=== PATIENT | male | born 1950 | race Caucasian/White ===

== ENCOUNTER 2016-12-02 15:10 | Inpatient (IN) | payer MEDICARE ==
[~2016-12-02 15:10] MED LIST: LISINOPRIL 2.5 MG TAB PO SCH; VALSARTAN 80 MG TAB PO SCH
[2016-12-02] MEDS ORDERED: SODIUM CHLORIDE 0.9% 10 ML FLUSH FLUSH PRN (15:18)
--- NOTE | 2016-12-02 15:18 | EDPRACDOC ---
- General Information Chief Complaint: Generalized Weakness Stated Complaint: CHEST PAIN Time Seen by Provider: 12/02/16 15:15 Allergies/Adverse Reactions: Allergies Allergy/AdvReac Type Severity Reaction Status Date / Time No Known Allergies Allergy Verified 12/02/16 15:23 - History of Present Illness Onset: 2 DAYS HPI: PT COMPLAINS OF 2 DAYS OF OWEN, WORSENING SOBR, SUBSTERNAL CHEST PRESSURE, NO FEVER OR CHILLS, NO N/V/D. Shortness of Breath: Severe Relevant History: Reports: Heart Failure (CHF) Cough: Reports: Non-productive Rhinorrhea: Denies: Clear, Bloody, Brown, Green, Purulent, None, O Ear Symptoms: Reports: None SOB Worsens with: Reports: Exertion SOB Improves with: Reports: Nothing Recently treated infections:: Denies: Otitis media, Pneumonia, URI Associated Signs and symptoms: Reports: Cough. Denies: Earache, Fever, Headache , Nasal Symptoms, Sore Throat, Nausea, Vomiting, Diarrhea, Myalgia, Rash, Pain with head movement, AMS ED Past Medical History - History Reviewed Yes Nurses notes reviewed and agree except as marked - Patient Medical History Cardiac History: Reports: Coronary Artery Disease, Congestive Heart Failure, CABG Systemic History: Reports: Diabetes - Social Medical History Smoking Status: Never smoker ETOH: None Substance Abuse: None EDM Review of Systems - Review of Systems Constitutional: negative: Chills, Fever Eyes: negative: Blurred Vision, Double Vision Ears: negative: Drainage Throat: negative: Pain Nose: negative: Congestion, Discharge Respiratory: Shortness of Breath, Wheezing. negative: Cough Cardiovascular: Chest Pain, Palpitations Gastrointestinal: negative: Diarrhea, Nausea, Pain, Vomiting Genitourinary: negative: Dysuria, Frequency Neurological: negative: Dizziness, Headache, Numbness, Weakness Musculoskeletal: No Symptoms Reported Integumentary: No Symptoms Reported - Physical Exam Constitutional: No apparent distress, Alert (Awake), Other (PALE) Oriented to: Time, Person, Place Last recorded Vital Signs: Oxygen Pulse Oxygen Saturation O2 Device Oxygen Flow Rate Fraction of Inspired Oxygen ( FIO2) - HEENT Head: Normal ( normocephalic) Eye Exam: Normal (PERRL, EOMI, Sclera white) Oropharynx: Normal (Pharynx:Moist without exudate,Gums-no swelling) Tympanic Membrane: Normal ENT EAC: Normal TMJ: Normal Nose: No Symptoms Reported (septum midline) Neck: Normal (FROM, trachea at midline) - Respiratory/Cardiovascular Respiratory: Accessory Muscle Use, Rales, Rhonchi Cardiovascular: Tachycardia. negative: Irregular, Diastolic murmur, Systolic murmur - GI Auscultation: Normal (NABS) Palpation: Normal (Soft,No rebound or guarding, non distended) Tenderness: Non tender Riddle's Sign: Negative - Musculoskeletal Back: Normal (Non-Tender) Extremities: Normal (Normal tone, Pulses 2+ No cyanosis or edema, FROM) - Integumentary Skin: Normal, Warm, Dry Lymphatics: Normal (no adenopathy) - Neurologic Memory Impaired: Normal Motor Function: Normal (Normal tone, Pulses 2+ No cyanosis or edema, FROM) Cranial Nerve: Normal (CN II-X11 intact sensation, strength 5/5) Cerebellar: Normal Mood Description: Normal Perception: Normal ED SOB MDM - Differential Diagnosis Differential Diagnosis: Heart Failure, Pnuemonia, Pneumothorax, Respiratory Failure - Re-evaluation Re-evaluation 1 Re-evaluation Time: 15:35 (NO CHANGE) Re-evaluation 2 Re-evaluation Time: 16:00 (IMPROVED ON BIPAP) Re-evaluation 3 Re-evaluation Time: 16:14 (IMPROVED ON BIPAP, DISCUSSED WITH DR STUBBS, HE WILL DISCUSS WITH HOSPTIALIST) - Results Result Diagrams: 12/02/16 15:21 12/02/16 15:21 - EKG EKG #1 EKG Time: 15:12 -: Yes EKG interpreted by me Rate: bpm: 127 [place]: LAD Rhythm: Aflutter Block: None Hypertrophy: None ST: Nonsp Comments: NO OLD EKG FOR COMPARISON Comparison: 06/20/11 (RATE INCREASED TODAY) - Diagnostic Imaging CXR Image interpreted by: Radiologist Diagnostic Imaging Comments: PORTABLE CHEST 1 VIEW COMPARISON: 06/20/2011 FINDINGS: Status post median sternotomy and CABG. Heart margins are obscured by significant parenchymal opacities in the lungs bilaterally, associated with air bronchograms. There is somewhat nodular appearance of these opacities.There is partial obscuration of the left hemidiaphragm. Possible left pleural effusion. IMPRESSION: 1. Significant diffuse and dense alveolar filling bilaterally. 2. Considerations include infection, pulmonary edema, pulmonary hemorrhage or significant metastatic disease. ED Critical Care Note - Critical Care Note Total Time (mins): 45 Comments: Due to the presence of and / or the risk of deterioration, my attendance to this patient required critical care time, including assessment/reassessment, documentation, ordering and interpreting ancillary studies, discussion with ED staff and consultants,patient and family, and excludes time spent on separately billable procedures. - Departure Condition: Serious Final Diagnosis: Acute respiratory failure with hypoxia, Lactic acidosis, NSTEMI (non-ST elevated myocardial infarction) Congestive heart failure Qualifiers: Congestive heart failure type: unspecified congestive heart failure type Congestive heart failure chronicity: acute Qualified Code(s): I50.9 - Heart failure, unspecified Instructions: Weakness (General) Education/Counseling Given To: Patient Education/Counseling Given Regarding: Diagnosis, Treatment, Prognosis, Follow Up
[2016-12-02 15:23] LABS: ABG Draw Site Left Radial; ABG Draw Tech SI; ALLEN'S TEST PASS; BEb -4.7 (+/- 2); TCO2 21.5 MMOL/L (23-27)
[2016-12-02] MEDS ORDERED: NITROGLYCERINE 2 % OINTMENT PACK TOP ONE (15:29)
[2016-12-02] MEDS ORDERED: FUROSEMIDE 40 MG/4 ML VIAL IV ONE (15:29)
[2016-12-02 15:39] LABS: MPV 8.8 fL (7.4-10.4)
[2016-12-02 15:51] LABS: PARTIAL THROMB. TIME 28.7 SEC (22-35); PT-INR 1.3
--- NOTE | 2016-12-02 15:51 | DIRPT ---
CLINICAL DATA: Shortness of breath. Difficulty breathing. Rapid shallow breathing and unable to take a deep breath. Cough. Oxygen in ED. Symptoms for 3 days. Worse today. EXAM: PORTABLE CHEST 1 VIEW COMPARISON: 06/20/2011 FINDINGS: Status post median sternotomy and CABG. Heart margins are obscured by significant parenchymal opacities in the lungs bilaterally, associated with air bronchograms. There is somewhat nodular appearance of these opacities.There is partial obscuration of the left hemidiaphragm. Possible left pleural effusion. IMPRESSION: 1. Significant diffuse and dense alveolar filling bilaterally. 2. Considerations include infection, pulmonary edema, pulmonary hemorrhage or significant metastatic disease. Electronically Signed By: Sheyla Vences M.D. On: 12/02/2016 15:49
[2016-12-02 15:57] LABS: BLOOD UREA NITROGEN 25 MG/DL (9-20); CALC CORRECTED 9.2 MG/DL (8.4-10.2); CALCIUM 8.7 MG/DL (8.4-10.2); CALCULATED OSMOLALITY 290 MOs/Kg (270-290); CHLORIDE 102 mEq/L (98-107); GLUCOSE 259 MG/DL (70-99); SODIUM LEVEL 144 mEq/L (137-146); TOTAL PROTEIN 7.2 G/DL (6.3-8.2)
[2016-12-02] MEDS ORDERED: CEFTRIAXONE 1 GM in D5W 100 ML IV ONE (16:07)
[2016-12-02] MEDS ORDERED: AZITHROMYCIN 500 MG in D5W 250 ML IV ONE (16:07)
[2016-12-02 16:09] LABS: SEG NEUTROPHIL 91 % (45-76); TOTAL CELL COUNT 100
[2016-12-02 16:56] LABS: LEUKOCYTES/URINE NEG (NEGATIVE); NITRITE/URINE NEG (NEGATIVE); URINE OCCULT BLOOD 1+ (NEG/TRACE)
[2016-12-02] MEDS ORDERED: ALBUTEROL 0.083% 3 ML NEB NEB PRN (17:09)
[2016-12-02] MEDS ORDERED: NITROGLYCERINE 0.4 MG TAB SL PRN (17:09)
[2016-12-02] MEDS ORDERED: IBUPROFEN 400 MG TAB PO PRN (17:09)
[2016-12-02] MEDS ORDERED: ACETAMINOPHEN 325 MG/TAB TABLET PO PRN (17:09)
[2016-12-02] MEDS ORDERED: ONDANSETRON HCL 4 MG/2 ML VIAL IV PRN (17:09)
[2016-12-02] MEDS ORDERED: PROMETHAZINE 25 MG/ML VIAL IV PRN (17:09)
[2016-12-02] MEDS ORDERED: GLUCAGON 1 MG VIAL SQ PRN (17:09)
[2016-12-02] MEDS ORDERED: DEXTROSE 25 GM/50 ML PFS IV PRN (17:09)
[2016-12-02] MEDS ORDERED: GLUCOSE (ORAL GEL) 15 GM TUBE PO PRN (17:09)
[2016-12-02] MEDS ORDERED: SODIUM CHLORIDE 0.9% 3 ML FLUSH FLUSH PRN (17:09)
[2016-12-02] MEDS ORDERED: MAGNESIUM HYDROXIDE 30 ML BOTTLE PO PRN (17:09)
[2016-12-02] MEDS ORDERED: Aluminum;Magnesium;Simethicone 30 ML UDC PO PRN (17:09)
[2016-12-02 17:24] LABS: ALLEN'S TEST PASS; BEb -1.1 (+/- 2); TCO2 25.6 MMOL/L (23-27)
[2016-12-02 17:25] LABS: ABG Draw Site LT BR; ABG Draw Tech RD
--- NOTE | 2016-12-02 17:28 | HISTPHYS ---
- Chief Complaint Patient presents at the behest of his family due to 2 days of worsening shortness of breath - History of Present Illness Will be 66-year-old gentleman last admission to our facility in 2010 no admissions since then to any other hospitals. Patient presents complaining of worsening shortness of breath and weakness he has had some lower extremity edema but is sister reports that is been much worse in the past. On rapid evaluation he is found to have a PO2 of 37 and started on BiPAP treatment immediately. Chest x-ray reveals diffuse dense alveolar filling bilaterally concerning for infection, pulmonary edema, pulmonary hemorrhage or significant metastatic disease. His O2 his very low and requiring significant support from the BiPAP. He appears to be in congestive heart failure with lower extremity edema and rales and rhonchi on examination his lactic acid is almost 6. [place] [id number]. His respiratory rate is in the high 20s to 30s. Given the above signs symptoms and findings patient will be admitted into the ICU for treatment of severe sepsis, probable pneumonia, and severe exacerbation of acute congestive heart failure. - Medical History Cardiac History: Reports: Coronary Artery Disease, Congestive Heart Failure, CABG Systemic History: Reports: Diabetes - Surgical History Reports: CABG - Medictions/Allergies Allergies No Known Allergies Allergy (Verified 12/02/16 15:23) Current Medication List: Reviewed Home Medications Amlodipine Besylate 10 mg PO DAILY 12/02/16 Clopidogrel Bisulfate [Plavix] 75 mg PO DAILY 12/02/16 Furosemide [Lasix] 40 mg PO BID 12/02/16 Insulin Detemir [Levemir] 10 units SQ DAILY 12/02/16 Lisinopril [Zestril] 40 mg PO DAILY 12/02/16 Metformin HCl 1,000 mg PO BID 12/02/16 Potassium Chloride [Klor-Con M20] 20 meq PO DAILY 12/02/16 Risperidone [Risperdal] 2 mg PO QHS 12/02/16 Rosuvastatin Calcium [Crestor] 20 mg PO DAILY 12/02/16 Sertraline HCl [Zoloft] 100 mg PO QHS 12/02/16 Sitagliptin Phosphate [Januvia] 50 mg PO DAILY 12/02/16 - Family History Reports: Hypertension, Diabetes - Social History Travel Outside of [place] in the Last 3 Months?: No Lives: Alone (?) Smoking Status: Never smoker Social History: Denies: Alcohol Use, Substance Use Disorder - Review of Systems Yes Review of systems cannot be obtained due to the patient's medical condition - Physical Exam Vital Signs: Initial Vitals Respiratory Rate 26 H 12/02/16 15:29 Pulse Oxygen Saturation 99 12/02/16 15:29 Constitutional: Distress (severe). negative: Well nourished, Well appearing Oriented to: Time, Person, Place - HEENT Head: Normal (normocephalic, atraumatic.), Other (No cervical lymphadenopathy. No supraclavicular lymphadenopathy. Neck: No palpable mass, supple , trachea midline.) Eye: Normal (pupils equal, reactive to light, and round; EOMI, Sclera white) Oropharynx: Normal (Pharynx: Moist without exudate,Gums-no swelling, No oropharyngeal lesions or erythema, Mucous membranes are dry.) Nose: No Symptoms Reported (septum midline, Nares patent, without discharge or bleeding.) Respiratory: Accessory Muscle Use, Diminished, Rales, Rhonchi, Tachypnea, Wheezes Cardiovascular: Tachycardia - GI Auscultation: Normal (normal active sounds) Palpation: Normal (Soft,non distended,nontender. No hepatosplenomegaly.) Tenderness: Non tender (No rebound or guarding) Riddle's Sign: Negative - Musculoskeletal Back: Normal (Non-Tender) Extremities: Edema (2+) - Integumentary Skin: Rash (venous stasis on RLE) Lymphatics: Normal (No cervical lymphadenopathy. No supraclavicular lymphadenopathy.) - Neurologic Memory Impaired: Unable to Test Motor Function: Unable to Test Cranial Nerve: Unable to Test Cerebellar: Unable to Test Mood Description: Anxious - Focused CV Perfusion Exam Date exam occurred: 12/02/16 Time of Exam: 17:33 Vital Signs: Last Vital Signs Temp 99.9 F 12/02/16 16:50 Pulse 116 12/02/16 16:50 Resp 26 H 12/02/16 16:50 BP 137/75 12/02/16 16:50 Pulse Ox 98 12/02/16 16:50 Respiratory: Chest non-tender, Accessory muscle use, Rales, Rhonchi, Wheezing Cardiovascular/Chest: Tachycardia Capillary Refill: Immediate Peripheral pulses: Full: Radial (R), Radial (L), Dorsalis pedis (R), Dorsalis pedis (L) Skin Color: Pale Skin Turgor: <3 Seconds - Lab Results Laboratory Results - last 24 hr 12/02/16 12/02/16 12/02/16 15:18 15:21 15:21 WBC 23.3 H RBC 4.78 Hgb 12.6 L Hct 38.9 L MCV 81 MCH 26.4 L MCHC 32.5 L RDW 15.2 H Plt Count 234 MPV 8.8 Seg Neuts % (Manual) 91 H Band Neutrophils % 2 Lymphocytes % (Manual) 2 L Monocytes % (Manual) 5 Absolute Neutrophils 21.67 H Absolute Lymphocytes 0.47 L Vacuolated Neuts 1+ Dohle Bodies Occ Platelet Estimate Occ giant platelet RBC Morphology 1+ ellipto PT INR APTT Puncture Site Left radial pH 7.350 pCO2 37.0 pO2 39.0 L* HCO3 20.4 L Total CO2 21.5 L Base Excess -4.7 L Vent Mode FiO2 % 21% Specimen Drawn By Si Sodium 144 Potassium 3.6 Chloride 102 Carbon Dioxide 20 L Anion Gap 26 H BUN 25 H Creatinine 1.30 H Estimated GFR (MDRD) 55 L Glucose 259 H POC Capillary Glucose Calculated Osmolality 290 Lactic Acid Calcium 8.7 Corrected Calcium 9.2 Total Bilirubin 1.0 AST 54 ALT 47 Alkaline Phosphatase 146 Troponin I 0.33 [id number] Pept 49116 H Total Protein 7.2 Albumin 3.5 Lipase 76 Urine Color Urine Clarity Urine pH Ur Specific [place] Urine Protein Urine Glucose (UA) Urine Ketones Urine Occult Blood Urine Nitrite Urine Bilirubin Urine Urobilinogen Ur Leukocyte Esterase Urine RBC Urine WBC Urine WBC Clumps Ur Epithelial Cells Urine Bacteria Hyaline Casts Urine Mucus 12/02/16 12/02/16 12/02/16 15:21 15:21 15:22 WBC RBC Hgb Hct MCV MCH MCHC RDW Plt Count MPV Seg Neuts % (Manual) Band Neutrophils % Lymphocytes % (Manual) Monocytes % (Manual) Absolute Neutrophils Absolute Lymphocytes Vacuolated Neuts Dohle Bodies Platelet Estimate RBC Morphology PT 13.0 H INR 1.3 APTT 28.7 Puncture Site pH pCO2 pO2 HCO3 Total CO2 Base Excess Vent Mode FiO2 % Specimen Drawn By Sodium Potassium Chloride Carbon Dioxide Anion Gap BUN Creatinine Estimated GFR (MDRD) Glucose POC Capillary Glucose 259 H Calculated Osmolality Lactic Acid 5.5 H* Calcium Corrected Calcium Total Bilirubin AST ALT Alkaline Phosphatase Troponin I [id number] Pept Total Protein Albumin Lipase Urine Color Urine Clarity Urine pH Ur Specific [place] Urine Protein Urine Glucose (UA) Urine Ketones Urine Occult Blood Urine Nitrite Urine Bilirubin Urine Urobilinogen Ur Leukocyte Esterase Urine RBC Urine WBC Urine WBC Clumps Ur Epithelial Cells Urine Bacteria Hyaline Casts Urine Mucus 12/02/16 12/02/16 16:39 17:20 WBC RBC Hgb Hct MCV MCH MCHC RDW Plt Count MPV Seg Neuts % (Manual) Band Neutrophils % Lymphocytes % (Manual) Monocytes % (Manual) Absolute Neutrophils Absolute Lymphocytes Vacuolated Neuts Dohle Bodies Platelet Estimate RBC Morphology PT INR APTT Puncture Site Lt br pH 7.370 pCO2 42.0 pO2 106.0 H HCO3 24.3 Total CO2 25.6 Base Excess -1.1 Vent Mode Bipap 12/6 FiO2 % 50% Specimen Drawn By Rd Sodium Potassium Chloride Carbon Dioxide Anion Gap BUN Creatinine Estimated GFR (MDRD) Glucose POC Capillary Glucose Calculated Osmolality Lactic Acid Calcium Corrected Calcium Total Bilirubin AST ALT Alkaline Phosphatase Troponin I Wzi-V-Vklkgllsvja Pept Total Protein Albumin Lipase Urine Color Yellow Urine Clarity Cldy Urine pH 5.0 Ur Specific [place] 1.015 Urine Protein 3+ H Urine Glucose (UA) Trace Urine Ketones Neg Urine Occult Blood 1+ H Urine Nitrite Neg Urine Bilirubin Neg Urine Urobilinogen <2.0 Ur Leukocyte Esterase Neg Urine RBC 5-10 H Urine WBC 2-5 H Urine WBC Clumps None Ur Epithelial Cells 1+ Urine Bacteria Few Hyaline Casts 10-20 H Urine Mucus Sm amt - Diagnostic Findings PORTABLE CHEST 1 VIEW COMPARISON: 06/20/2011 FINDINGS: Status post median sternotomy and CABG. Heart margins are obscured by significant parenchymal opacities in the lungs bilaterally, associated with air bronchograms. There is somewhat nodular appearance of these opacities.There is partial obscuration of the left hemidiaphragm. Possible left pleural effusion. IMPRESSION: 1. Significant diffuse and dense alveolar filling bilaterally. 2. Considerations include infection, pulmonary edema, pulmonary hemorrhage or significant metastatic disease. Electronically Signed By: Sheyla Vences M.D. On: 12/02/2016 15:49 - Assessment (1) Severe sepsis A41.9 - SEPSIS, UNSPECIFIED ORGANISM; R65.20 - SEVERE SEPSIS WITHOUT SEPTIC SHOCK Acute Present on Admission: Yes (2) Acute respiratory failure with hypoxia J96.01 - ACUTE RESPIRATORY FAILURE WITH HYPOXIA Acute Present on Admission: Yes (3) Congestive heart failure I50.9 - HEART FAILURE, UNSPECIFIED Acute Present on Admission: Yes Qualifiers: Congestive heart failure type: systolic Congestive heart failure chronicity : acute Qualified Code(s): I50.21 - Acute systolic (congestive) heart failure (4) Bacterial pneumonia J15.9 - UNSPECIFIED BACTERIAL PNEUMONIA Suspected Present on Admission: Yes (5) Lactic acidosis E87.2 - ACIDOSIS Acute Present on Admission: Yes (6) Acute kidney injury N17.9 - ACUTE KIDNEY FAILURE, UNSPECIFIED Acute Present on Admission: Yes (7) DM type 2, uncontrolled, with renal complications E11.29 - TYPE 2 DIABETES MELLITUS W OTH DIABETIC KIDNEY COMPLICATION; E11.65 - TYPE 2 DIABETES MELLITUS WITH HYPERGLYCEMIA Chronic Present on Admission: Yes Qualifiers: Diabetes mellitus complication detail: with chronic kidney disease Diabetes mellitus penitentiary insulin use: with penitentiary use Chronic kidney disease stage: stage 3 (moderate) Qualified Code(s): E11.22 - Type 2 diabetes mellitus with diabetic chronic kidney disease; E11.65 - Type 2 diabetes mellitus with hyperglycemia; N18.3 - Chronic kidney disease, stage 3 (moderate) ; Z79.4 - nursing home (current) use of insulin (8) CAD (coronary artery disease) I25.10 - ATHSCL HEART DISEASE OF [place] CORONARY ARTERY W/O ANG PCTRS Chronic Present on Admission: Yes Qualifiers: Coronary Disease-Associated Artery/Lesion type: [place] artery [place] vs. transplanted heart: [place] heart Associated angina: without angina Qualified Code(s): I25.10 - Atherosclerotic heart disease of [place] coronary artery without angina pectoris (9) S/P coronary artery bypass graft x 2 Chronic Present on Admission: Yes - Plan Patient is acutely and critically ill and being admitted to rule out pneumonia as well as to determine the type of congestive heart failure he has. He is requiring BiPAP therapy and may very well worsen if he worsens he will likely require intubation. He will be started on aggressive pulmonary treatments along with IV antibiotics and diuresis for probable congestive heart failure. I have started him on aspirin, Servando, Arb, beta-cesar and nitrates. Cultures are being obtained. At this point patient's blood pressure is fairly [place] in does not appear to require any pressors. Will continue treatment for sepsis with sepsis protocol. Evidence based care for congestive heart failure, and evidence based care for pneumonia. Due to the presence of and/or the risk of deterioration, my attendance to this patient required critical care time, including assessment/reassessment, documentation, ordering and interpreting ancillary studies, discussion with staff and consultants,patient and family, and excludes time spent on separately billable procedures. In summary, this patient is acutely and critically ill. The patient requires treatment of vital organ failure and measures to prevent further life-threatening deterioration of condition. Case Care Discussed with: Patient, Family, Nursing Staff Total Time: 85 min Critical Care: Yes Couseling Time (>50% in counseling/coordination): No
[2016-12-02] MEDS ORDERED: Pharmacy Order Set Alert SCH ×2 (18:00)
[2016-12-02] MEDS ORDERED: NS/KCl 20 mEq 1,000 ML IV SCH (18:00)
[2016-12-02] MEDS ORDERED: ENOXAPARIN 60 MG/0.6 ML PFS SQ SCH (18:00)
[2016-12-02] MEDS ORDERED: INSULIN DETEMIR 100 UNITS/ML PEN SQ SCH (18:00)
[2016-12-02] MEDS ORDERED: LR 1,000 ML IV SCH (18:00)
[2016-12-02] MEDS: ATORVASTATIN 10 MG TAB PO SCH (18:26)
[2016-12-02] MEDS: METOPROLOL TARTRATE 25 MG TAB PO SCH ×2 (18:26→21:20)
[2016-12-02] MEDS: POTASSIUM CHLORIDE 20 MEQ TAB PO SCH (18:26)
[2016-12-02] MEDS: FUROSEMIDE 40 MG/4 ML VIAL IV SCH (18:48)
[2016-12-02] MEDS: SODIUM CHLORIDE 0.9% 3 ML FLUSH FLUSH SCH (18:50)
--- NOTE | 2016-12-02 19:47 | HIMCONS ---
DATE OF CONSULT: REQUESTING PHYSICIAN: Dr. Robledo. REASON FOR CONSULTATION: Respiratory failure. HISTORY OF PRESENT ILLNESS: This patient is a 66-year-old male, who was doing fairly well until yesterday when he was found to be having mild dyspnea and some coughing, but today the patient was found to be extremely dyspneic, weak, short of breath, coughing which was mostly dry, and has been much worse than what he has been in the past. The patient has had past medical history significant for coronary artery bypass graft surgery and his PaO2 was 37 and he was placed on BiPAP at that time. Chest x-ray showed diffuse pulmonary edema/infiltrates with question of pulmonary hemorrhage. The patient was placed on BiPAP. He has been feeling somewhat better today according to the sisters. He is able to talk and communicate and is not in acute distress at this time. However, the patient's lactic acid level was 6, white count was 23,000. The patient was therefore being admitted for severe sepsis, pneumonia, congestive heart failure versus ARDS. PAST MEDICAL HISTORY: Significant for coronary artery disease status post CABG and congestive heart failure, diabetes. SURGICAL HISTORY: Significant for CABG. ALLERGIES: THE PATIENT HAS NO KNOWN DRUG ALLERGIES. MEDICATIONS: In the chart were noted. FAMILY HISTORY: Significant for diabetes and hypertension in near family members. SOCIAL HISTORY: The patient has never been a smoker. No history of alcohol or drug abuse. Lives by himself. REVIEW OF SYSTEMS: Entire review of systems is negative except for those mentioned in the history of present illness. PHYSICAL EXAMINATION: VITAL SIGNS: Temperature is 99.7 degrees Fahrenheit, pulse is 130, respiratory rate is 22, blood pressure 135/93, pulse ox 95% on BiPAP. CHEST: Bilateral rales and diffuse wheezing. HEART: S1, S2. Regular. The patient has systolic murmur. EXTREMITIES: No clubbing or cyanosis. The patient has 1+ bilateral ankle edema. ABDOMEN: Soft and nontender. Bowel sounds present. Hepatosplenomegaly is absent. NEURO: Grossly nonfocal. The patient is moving all extremities. LABORATORY DATA: White count is 23.3, hemoglobin is 12.6, hematocrit 38.9, platelets are 234, PT and INR within normal limits. Blood gas showed a pH of 7.37, pCO2 of 42, PO2 of 106 on BiPAP 12/6 with 50% oxygen. Sodium 144, potassium 3.6, chloride 102, CO2 of 20, BUN is 25, creatinine is 1.3, glucose is 259, lactic acid 5.5. LFTs otherwise are within normal limits. ProBNP level was 29,700. IMAGING REPORTS: Chest x-ray was seen personally. The patient seems to have diffuse bilateral pulmonary edema versus ARDS. IMPRESSION: 1. [id number] respiratory failure with most likely congestive heart failure. Cannot rule out acute respiratory distress syndrome. 2. Multiple other medical issues including diabetes. PLAN: I think, the patient is doing fairly well on BiPAP and I would continue the BiPAP / with oxygen keep the patient in ICU. The patient is critically ill and he is in danger of getting intubated and getting worse. I would agree with continuing the patient on Rocephin and Zithromax and continue DVT and GI prophylaxis on this patient. Given the amount of wheezing that the patient is having, I would start the patient on Solu-Medrol at 60 mg IV q.6 hours and also start diuresis on this patient and the patient is on 40 milligrams of Lasix q.8 hours. I would continue that and make sure the patient stays in negative balance. I would discontinue Ringer's lactate. At this time, continue supportive care. Thank you much for the consultation and I will follow the patient with you. The time spent critical care, 90 minutes. [id number]
[2016-12-02] MEDS ORDERED: Vaccine Screening Complete SCH (21:00)
[2016-12-02] MEDS: Famotidine 20 mg/50 ml RTU 20 MG/50 ML IVB IV SCH (21:15)
[2016-12-02] MEDS: RISPERIDONE 1 MG TAB PO SCH (21:20)
[2016-12-02] MEDS: SERTRALINE HCL 100 MG TAB PO SCH (21:22)
[2016-12-02] MEDS: ALBUTEROL 0.083% 3 ML NEB NEB SCH (21:38)
[2016-12-02] MEDS: MORPHINE 2 MG/ML INJECTION IV PRN (22:01)
[2016-12-02] MEDS: CHLORHEXIDINE (HIBICLENS) 4 OZ BOTTLE TOP SCH (22:04)
[2016-12-02] MEDS: REGULAR INSULIN 100 UNITS/ML - 3 ML VIAL SQ SCH (23:12)
[2016-12-02] MEDS: NITROGLYCERINE 2 % OINTMENT PACK TOP SCH (23:16)
[2016-12-03] MEDS: ENOXAPARIN 100 MG PFS SQ SCH ×2 (00:12→11:55)
[2016-12-03] MEDS ORDERED: Enoxaparin Treatment Dose per Pharmacy SQ SCH (01:00)
[2016-12-03] MEDS: FUROSEMIDE 40 MG/4 ML VIAL IV SCH ×5 (01:17→23:32)
[2016-12-03] MEDS: ACETAMINOPHEN 650 MG SUPP PR PRN ×3 (02:32→22:30)
[2016-12-03] MEDS: ALBUTEROL 0.083% 3 ML NEB NEB SCH ×4 (02:55→20:35)
[2016-12-03] MEDS: SODIUM CHLORIDE 0.9% 3 ML FLUSH FLUSH SCH ×2 (05:16→17:54)
[2016-12-03] MEDS: NITROGLYCERINE 2 % OINTMENT PACK TOP SCH ×3 (05:19→17:53)
[2016-12-03 05:24] LABS: ALLEN'S TEST PASS; BEb 2.9 (+/- 2); TCO2 29.2 MMOL/L (23-27)
[2016-12-03] MEDS: REGULAR INSULIN 100 UNITS/ML - 3 ML VIAL SQ SCH ×4 (05:26→20:52)
[2016-12-03 05:27] LABS: ABG Draw Site Left Radial; BI-PAP 19/8 cm H2O
[2016-12-03 06:16] LABS: AUTOMATED BASOPHIL 0.2 % (0-2); AUTOMATED LYMPH 5.5 % (17-44); AUTOMATED MONOCYTE 6.6 % (3-10); AUTOMATED NEUTROPHIL 87.7 % (45-76); MPV 9.2 fL (7.4-10.4)
[2016-12-03 06:43] LABS: BLOOD UREA NITROGEN 34 MG/DL (9-20); CALC CORRECTED 9.6 MG/DL (8.4-10.2); CALCIUM 8.3 MG/DL (8.4-10.2); CALCULATED OSMOLALITY 294 MOs/Kg (270-290); CHLORIDE 105 mEq/L (98-107); GLUCOSE 182 MG/DL (70-99); SODIUM LEVEL 146 mEq/L (137-146); TOTAL PROTEIN 5.9 G/DL (6.3-8.2)
[2016-12-03 06:48] LABS: PT-INR 1.3
[2016-12-03] MEDS: INSULIN DETEMIR 100 UNITS/ML PEN SQ SCH (07:27)
[2016-12-03 07:35] LABS: LDL (calc.) 52.4 MG/DL (<100); VLDL (calc.) 28.6 MG/DL (5-40)
--- NOTE | 2016-12-03 07:50 | DIRPT ---
CLINICAL DATA: Pneumonia/CHF EXAM: PORTABLE CHEST 1 VIEW COMPARISON: Yesterday FINDINGS: Unchanged diffuse dense airspace disease with a somewhat patchy pattern. Air bronchograms are diffusely seen. No definitive signs of pleural effusion. No pneumothorax. Chronic cardiomegaly. The patient is status post CABG. IMPRESSION: History of pneumonia with unchanged graham lobar involvement. Electronically Signed By: Joao Luna M.D. On: 12/03/2016 07:47
[2016-12-03] MEDS ORDERED: METOPROLOL TARTRATE 25 MG TAB PO SCH (08:49)
[2016-12-03] MEDS: ROSUVASTATIN 10 MG TAB PO SCH (08:53)
[2016-12-03] MEDS: ATORVASTATIN 10 MG TAB PO SCH (08:53)
[2016-12-03] MEDS: SITAGLIPTIN 50 MG TAB PO SCH (08:53)
[2016-12-03] MEDS: POTASSIUM CHLORIDE 20 MEQ TAB PO SCH ×2 (08:53→17:44)
--- NOTE | 2016-12-03 08:53 | GENMEDPROG ---
Notes Reviewed: Yes Events from last night noted and discussed with Clinical Staff Current Medication List: Reviewed Currently: Reports: Cough, Wheezing, OWEN, SOB DVT Prophylaxis: Yes - Physical Examination Vital Signs and I&O: Last Vital Signs Temp 99.3 F 12/03/16 07:00 Pulse 132 H 12/03/16 08:00 Resp 30 H 12/03/16 08:00 BP 129/81 12/03/16 08:00 Pulse Ox 94 12/03/16 08:00 Oxygen Pulse Oxygen Saturation 94 O2 Device BiPAP Oxygen Flow Rate Fraction of Inspired Oxygen ( 50 FIO2) Intake & Output 11/30/16 12/01/16 12/02/16 12/03/16 23:59 23:59 23:59 23:59 Intake Total 798 124 Output Total 320 375 Balance 478 -251 Patient's weight 99 kg General: Alert, Oriented x3, Moderate distress, Obese HEENT: Normal (Normocephalic, atraumatic;EOMI.Sclera white, Nares patent, without discharge or bleeding. No oropharyngeal lesions or erythema. Mucous membranes are dry.) Neck: Non-tender, Full range of motion, Normal Trachea alignment, Normal inspection (No cervical lymphadenopathy. No supraclavicular lymphadenopathy.), No Masses palpable, Supple Lymphatics: Normal (No cervical lymphadenopathy. No supraclavicular lymphadenopathy.) Respiratory: Accessory Muscle Use, Diminished, Rales, Rhonchi, Stridor, Tachypnea (Wearing BiPAP). negative: Wheezes Cardiovascular: Regular rate and rhythm (Tachycardic with heart rate of 125), Normal S1, No Gallops,Rubs/Murmurs GI: Normal bowel sounds (normal active sounds), Soft (non-distended), Non tender , No hepatospenomegaly, No masses Extremities/Musculoskeletal: Swelling, Edema. negative: Clubbing, Cyanosis Skin: Warm,Dry and Intact, No rashes, No significant lesion Neurological: Strength at 5/5 X4 ext (Motor 5/5 throughout.), Normal tone, Cranial nerves 3-12 NL ( 2-12 grossly intact.) Psych/Mental Status: Anxious Lab/DI/Studies Reviewed: 12/03/16 05:45 12/03/16 05:45 Laboratory Results - last 24 hr 12/02/16 12/02/16 12/02/16 15:18 15:21 15:21 WBC 23.3 H RBC 4.78 Hgb 12.6 L Hct 38.9 L MCV 81 MCH 26.4 L MCHC 32.5 L RDW 15.2 H Plt Count 234 MPV 8.8 Neut % (Auto) Lymph % (Auto) [place] % (Auto) Eos % (Auto) Baso % (Auto) Absolute Neuts (auto) Absolute Lymphs (auto) Seg Neuts % (Manual) 91 H Band Neutrophils % 2 Lymphocytes % (Manual) 2 L Monocytes % (Manual) 5 Absolute Neutrophils 21.67 H Absolute Lymphocytes 0.47 L Vacuolated Neuts 1+ Dohle Bodies Occ Platelet Estimate Occ giant platelet RBC Morphology 1+ ellipto PT INR APTT Puncture Site Left radial pH 7.350 pCO2 37.0 pO2 39.0 L* HCO3 20.4 L Total CO2 21.5 L Base Excess -4.7 L Vent Mode FiO2 % 21% Mode BiPAP Specimen Drawn By Si Sodium 144 Potassium 3.6 Chloride 102 Carbon Dioxide 20 L Anion Gap 26 H BUN 25 H Creatinine 1.30 H Estimated GFR (MDRD) 55 L Glucose 259 H POC Capillary Glucose Hemoglobin A1c Calculated Osmolality 290 Lactic Acid Calcium 8.7 Corrected Calcium 9.2 Magnesium Total Bilirubin 1.0 AST 54 ALT 47 Alkaline Phosphatase 146 Troponin I 0.33 [id number]-Cahegzhnsot Pept 46228 H Total Protein 7.2 Albumin 3.5 Triglycerides Cholesterol LDL Cholesterol, Calc VLDL Cholesterol, Calc HDL Cholesterol Cholesterol/HDL Ratio Lipase 76 TSH Urine Color Urine Clarity Urine pH Ur Specific [place] Urine Protein Urine Glucose (UA) Urine Ketones Urine Occult Blood Urine Nitrite Urine Bilirubin Urine Urobilinogen Ur Leukocyte Esterase Urine RBC Urine WBC Urine WBC Clumps Ur Epithelial Cells Urine Bacteria Hyaline Casts Urine Mucus 12/02/16 12/02/16 12/02/16 15:21 15:21 15:21 WBC RBC Hgb Hct MCV MCH MCHC RDW Plt Count MPV Neut % (Auto) Lymph % (Auto) [place] % (Auto) Eos % (Auto) Baso % (Auto) Absolute Neuts (auto) Absolute Lymphs (auto) Seg Neuts % (Manual) Band Neutrophils % Lymphocytes % (Manual) Monocytes % (Manual) Absolute Neutrophils Absolute Lymphocytes Vacuolated Neuts Dohle Bodies Platelet Estimate RBC Morphology PT 13.0 H INR 1.3 APTT 28.7 Puncture Site pH pCO2 pO2 HCO3 Total CO2 Base Excess Vent Mode FiO2 % Mode BiPAP Specimen Drawn By Sodium Potassium Chloride Carbon Dioxide Anion Gap BUN Creatinine Estimated GFR (MDRD) Glucose POC Capillary Glucose Hemoglobin A1c 6.6 H Calculated Osmolality Lactic Acid 5.5 H* Calcium Corrected Calcium Magnesium Total Bilirubin AST ALT Alkaline Phosphatase Troponin I [id number] Pept Total Protein Albumin Triglycerides Cholesterol LDL Cholesterol, Calc VLDL Cholesterol, Calc HDL Cholesterol Cholesterol/HDL Ratio Lipase TSH Urine Color Urine Clarity Urine pH Ur Specific [place] Urine Protein Urine Glucose (UA) Urine Ketones Urine Occult Blood Urine Nitrite Urine Bilirubin Urine Urobilinogen Ur Leukocyte Esterase Urine RBC Urine WBC Urine WBC Clumps Ur Epithelial Cells Urine Bacteria Hyaline Casts Urine Mucus 12/02/16 12/02/16 12/02/16 15:21 15:22 16:39 WBC RBC Hgb Hct MCV MCH MCHC RDW Plt Count MPV Neut % (Auto) Lymph % (Auto) [place] % (Auto) Eos % (Auto) Baso % (Auto) Absolute Neuts (auto) Absolute Lymphs (auto) Seg Neuts % (Manual) Band Neutrophils % Lymphocytes % (Manual) Monocytes % (Manual) Absolute Neutrophils Absolute Lymphocytes Vacuolated Neuts Dohle Bodies Platelet Estimate RBC Morphology PT INR APTT Puncture Site pH pCO2 pO2 HCO3 Total CO2 Base Excess Vent Mode FiO2 % Mode BiPAP Specimen Drawn By Sodium Potassium Chloride Carbon Dioxide Anion Gap BUN Creatinine Estimated GFR (MDRD) Glucose POC Capillary Glucose 259 H Hemoglobin A1c Calculated Osmolality Lactic Acid Calcium Corrected Calcium Magnesium Total Bilirubin AST ALT Alkaline Phosphatase Troponin I [id number]-Ghjrfntpvas Pept Total Protein Albumin Triglycerides Cholesterol LDL Cholesterol, Calc VLDL Cholesterol, Calc HDL Cholesterol Cholesterol/HDL Ratio Lipase TSH 0.56 Urine Color Yellow Urine Clarity Cldy Urine pH 5.0 Ur Specific [place] 1.015 Urine Protein 3+ H Urine Glucose (UA) Trace Urine Ketones Neg Urine Occult Blood 1+ H Urine Nitrite Neg Urine Bilirubin Neg Urine Urobilinogen <2.0 Ur Leukocyte Esterase Neg Urine RBC 5-10 H Urine WBC 2-5 H Urine WBC Clumps None Ur Epithelial Cells 1+ Urine Bacteria Few Hyaline Casts 10-20 H Urine Mucus Sm amt 12/02/16 12/02/16 12/02/16 17:20 18:02 20:04 WBC RBC Hgb Hct MCV MCH MCHC RDW Plt Count MPV Neut % (Auto) Lymph % (Auto) [place] % (Auto) Eos % (Auto) Baso % (Auto) Absolute Neuts (auto) Absolute Lymphs (auto) Seg Neuts % (Manual) Band Neutrophils % Lymphocytes % (Manual) Monocytes % (Manual) Absolute Neutrophils Absolute Lymphocytes Vacuolated Neuts Dohle Bodies Platelet Estimate RBC Morphology PT INR APTT Puncture Site Lt br pH 7.370 pCO2 42.0 pO2 106.0 H HCO3 24.3 Total CO2 25.6 Base Excess -1.1 Vent Mode Bipap 12/6 FiO2 % 50% Mode BiPAP Specimen Drawn By Rd Sodium Potassium Chloride Carbon Dioxide Anion Gap BUN Creatinine Estimated GFR (MDRD) Glucose POC Capillary Glucose 175 H Hemoglobin A1c Calculated Osmolality Lactic Acid Calcium Corrected Calcium Magnesium Total Bilirubin AST ALT Alkaline Phosphatase Troponin I 0.40 [id number]-Kzwivpyprgo Pept Total Protein Albumin Triglycerides Cholesterol LDL Cholesterol, Calc VLDL Cholesterol, Calc HDL Cholesterol Cholesterol/HDL Ratio Lipase TSH Urine Color Urine Clarity Urine pH Ur Specific [place] Urine Protein Urine Glucose (UA) Urine Ketones Urine Occult Blood Urine Nitrite Urine Bilirubin Urine Urobilinogen Ur Leukocyte Esterase Urine RBC Urine WBC Urine WBC Clumps Ur Epithelial Cells Urine Bacteria Hyaline Casts Urine Mucus 12/02/16 12/02/16 12/02/16 20:30 20:30 22:55 WBC RBC Hgb Hct MCV MCH MCHC RDW Plt Count MPV Neut % (Auto) Lymph % (Auto) [place] % (Auto) Eos % (Auto) Baso % (Auto) Absolute Neuts (auto) Absolute Lymphs (auto) Seg Neuts % (Manual) Band Neutrophils % Lymphocytes % (Manual) Monocytes % (Manual) Absolute Neutrophils Absolute Lymphocytes Vacuolated Neuts Dohle Bodies Platelet Estimate RBC Morphology PT INR APTT Puncture Site pH pCO2 pO2 HCO3 Total CO2 Base Excess Vent Mode FiO2 % Mode BiPAP Specimen Drawn By Sodium Potassium Chloride Carbon Dioxide Anion Gap BUN Creatinine Estimated GFR (MDRD) Glucose POC Capillary Glucose Hemoglobin A1c Calculated Osmolality Lactic Acid 2.2 H Calcium Corrected Calcium Magnesium Total Bilirubin AST ALT Alkaline Phosphatase Troponin I 0.45 H* 0.38 [id number]-Ttetopkrgvn Pept Total Protein Albumin Triglycerides Cholesterol LDL Cholesterol, Calc VLDL Cholesterol, Calc HDL Cholesterol Cholesterol/HDL Ratio Lipase TSH Urine Color Urine Clarity Urine pH Ur Specific [place] Urine Protein Urine Glucose (UA) Urine Ketones Urine Occult Blood Urine Nitrite Urine Bilirubin Urine Urobilinogen Ur Leukocyte Esterase Urine RBC Urine WBC Urine WBC Clumps Ur Epithelial Cells Urine Bacteria Hyaline Casts Urine Mucus 0112/03/16 12/03/16 23:10 05:07 05:15 WBC RBC Hgb Hct MCV MCH MCHC RDW Plt Count MPV Neut % (Auto) Lymph % (Auto) [place] % (Auto) Eos % (Auto) Baso % (Auto) Absolute Neuts (auto) Absolute Lymphs (auto) Seg Neuts % (Manual) Band Neutrophils % Lymphocytes % (Manual) Monocytes % (Manual) Absolute Neutrophils Absolute Lymphocytes Vacuolated Neuts Dohle Bodies Platelet Estimate RBC Morphology PT INR APTT Puncture Site Left radial pH 7.420 pCO2 43.0 pO2 81.0 HCO3 27.9 H Total CO2 29.2 H Base Excess 2.9 H Vent Mode FiO2 % 50% Mode BiPAP 18/07 Specimen Drawn By Stana Sodium Potassium Chloride Carbon Dioxide Anion Gap BUN Creatinine Estimated GFR (MDRD) Glucose POC Capillary Glucose 181 H 174 H Hemoglobin A1c Calculated Osmolality Lactic Acid Calcium Corrected Calcium Magnesium Total Bilirubin AST ALT Alkaline Phosphatase Troponin I Kjg-[id number]-Keezvvunlud Pept Total Protein Albumin Triglycerides Cholesterol LDL Cholesterol, Calc VLDL Cholesterol, Calc HDL Cholesterol Cholesterol/HDL Ratio Lipase TSH Urine Color Urine Clarity Urine pH Ur Specific [place] Urine Protein Urine Glucose (UA) Urine Ketones Urine Occult Blood Urine Nitrite Urine Bilirubin Urine Urobilinogen Ur Leukocyte Esterase Urine RBC Urine WBC Urine WBC Clumps Ur Epithelial Cells Urine Bacteria Hyaline Casts Urine Mucus 12/03/16 12/03/16 12/03/16 05:20 05:45 05:45 WBC 18.0 H RBC 4.39 L Hgb 11.7 L Hct 35.7 L MCV 81 MCH 26.7 L MCHC 32.8 L RDW 15.4 H Plt Count 192 MPV 9.2 Neut % (Auto) 87.7 H Lymph % (Auto) 5.5 L [place] % (Auto) 6.6 Eos % (Auto) 0.0 Baso % (Auto) 0.2 Absolute Neuts (auto) 15.66 H Absolute Lymphs (auto) 0.90 Seg Neuts % (Manual) Band Neutrophils % Lymphocytes % (Manual) Monocytes % (Manual) Absolute Neutrophils Absolute Lymphocytes Vacuolated Neuts Dohle Bodies Platelet Estimate RBC Morphology PT INR APTT Puncture Site pH pCO2 pO2 HCO3 Total CO2 Base Excess Vent Mode FiO2 % Mode BiPAP Specimen Drawn By Sodium 146 Potassium 3.7 Chloride 105 Carbon Dioxide 27 Anion Gap 18 H BUN 34 H Creatinine 1.50 H Estimated GFR (MDRD) 47 L Glucose 182 H POC Capillary Glucose 183 H Hemoglobin A1c Calculated Osmolality 294 H Lactic Acid Calcium 8.3 L Corrected Calcium 9.6 Magnesium 2.00 Total Bilirubin 0.7 AST 39 ALT 39 Alkaline Phosphatase 124 Troponin I 0.34 Htd-T-Drgkdzpzrnf Pept Total Protein 5.9 L Albumin 2.7 L Triglycerides 143 Cholesterol 108 LDL Cholesterol, Calc 52.4 VLDL Cholesterol, Calc 28.6 HDL Cholesterol 27.0 L Cholesterol/HDL Ratio 4.0 Lipase TSH Urine Color Urine Clarity Urine pH Ur Specific [place] Urine Protein Urine Glucose (UA) Urine Ketones Urine Occult Blood Urine Nitrite Urine Bilirubin Urine Urobilinogen Ur Leukocyte Esterase Urine RBC Urine WBC Urine WBC Clumps Ur Epithelial Cells Urine Bacteria Hyaline Casts Urine Mucus 12/03/16 05:45 WBC RBC Hgb Hct MCV MCH MCHC RDW Plt Count MPV Neut % (Auto) Lymph % (Auto) [place] % (Auto) Eos % (Auto) Baso % (Auto) Absolute Neuts (auto) Absolute Lymphs (auto) Seg Neuts % (Manual) Band Neutrophils % Lymphocytes % (Manual) Monocytes % (Manual) Absolute Neutrophils Absolute Lymphocytes Vacuolated Neuts Dohle Bodies Platelet Estimate RBC Morphology PT 13.6 H INR 1.3 APTT Puncture Site pH pCO2 pO2 HCO3 Total CO2 Base Excess Vent Mode FiO2 % Mode BiPAP Specimen Drawn By Sodium Potassium Chloride Carbon Dioxide Anion Gap BUN Creatinine Estimated GFR (MDRD) Glucose POC Capillary Glucose Hemoglobin A1c Calculated Osmolality Lactic Acid Calcium Corrected Calcium Magnesium Total Bilirubin AST ALT Alkaline Phosphatase Troponin I Coe-K-Tfzutaqxkph Pept Total Protein Albumin Triglycerides Cholesterol LDL Cholesterol, Calc VLDL Cholesterol, Calc HDL Cholesterol Cholesterol/HDL Ratio Lipase TSH Urine Color Urine Clarity Urine pH Ur Specific [place] Urine Protein Urine Glucose (UA) Urine Ketones Urine Occult Blood Urine Nitrite Urine Bilirubin Urine Urobilinogen Ur Leukocyte Esterase Urine RBC Urine WBC Urine WBC Clumps Ur Epithelial Cells Urine Bacteria Hyaline Casts Urine Mucus - Assessment (1) Acute kidney injury Acute N17.9 - ACUTE KIDNEY FAILURE, UNSPECIFIED Comment/Plan: Creatinine has now climbed to 1.5 and I anticipate it going higher with the administration of Servando inhibition and loop diuretics. (2) Acute respiratory failure with hypoxia Acute J96.01 - ACUTE RESPIRATORY FAILURE WITH HYPOXIA Comment/Plan: Acute respiratory failure is evident with tachypnea and continued use of BiPAP. Concerned that pneumonia and CHF are working together and causing demand ischemia with hypoxemia. (3) Congestive heart failure Acute I50.9 - HEART FAILURE, UNSPECIFIED Qualifiers: Congestive heart failure type: systolic Congestive heart failure chronicity : acute Qualified Code(s): I50.21 - Acute systolic (congestive) heart failure Comment/Plan: Scheduled IV Lasix which may need to be increased depending on how he responds to the dosage. With his renal failure reluctant to add an Arb to an Servando-I so will discontinue the Arb and may have to hold the Servando-I until creatinine becomes more favorable. Awaiting results of echocardiogram. BNP markedly elevated greater than 29,000 and bilateral scattered rales throughout both lung esparza. (4) Demand ischemia Acute I24.8 - OTHER FORMS OF ACUTE ISCHEMIC HEART DISEASE Comment/Plan: Demand ischemia is evident with elevated troponin 0.45. Additional Notes: Due to the presence of and / or the risk of deterioration, my attendance to this patient required critical care time, including assessment/reassessment, documentation, ordering and interpreting ancillary studies, discussion with staff and consultants,patient and family, and excludes time spent on separately billable procedures. This individual is critically ill and in danger of dying. Case Care Discussed with: Patient, Nursing Staff, Resource Management Education/Counseling Given To: Patient Education/Counseling Given Regarding: Diagnosis, Treatment Total Time: Critical care time spent 48 minutes Critical Care: Yes Code: 291
[2016-12-03] MEDS: CLOPIDOGREL 75 MG TAB PO SCH (08:54)
[2016-12-03] MEDS ORDERED: LISINOPRIL 40 MG TAB PO SCH (09:00)
[2016-12-03] MEDS: LISINOPRIL 40 MG TAB PO SCH (09:05)
[2016-12-03] MEDS: MORPHINE 2 MG/ML INJECTION IV PRN ×3 (09:14→20:49)
[2016-12-03] MEDS: Famotidine 20 mg/50 ml RTU 20 MG/50 ML IVB IV SCH ×2 (09:14→20:49)
--- NOTE | 2016-12-03 09:49 | PCM.PULM ---
Chief Complaint: Acute respiratory failure with hypoxia Bacterial pneumonia Congestive heart failure Acute kidney injury NSTE NH Severe sepsis Lactose acidosis Patient in Intensive care unit alert and responsive follows commands. On BIPAP Current medication list reviewed:yes Notes reviewed:yes, Events from last night noted and discussed with Clinical Staff DVT/GI prophylaxis:yes - Physical Examination Vital Signs and I&O: Last Vital Signs Temp 99.3 F 12/03/16 07:00 Pulse 126 H 12/03/16 09:00 Resp 29 H 12/03/16 09:14 BP 137/90 12/03/16 09:00 Pulse Ox 92 12/03/16 09:00 Oxygen Pulse Oxygen Saturation 92 O2 Device BiPAP Oxygen Flow Rate Fraction of Inspired Oxygen ( 50 FIO2) Intake & Output 11/30/16 12/01/16 12/02/16 12/03/16 23:59 23:59 23:59 23:59 Intake Total 798 124 Output Total 320 375 Balance 478 -251 Patient's weight 99 kg General: Alert, Oriented x3, Cooperative, No acute distress, Weakness, Fatigue Respiratory: Diminished, Rhonchi Cardiovascular: Normal S1, Normal S2, Murmurs, Good Pedal Pulses, Irregular ( Rate and rhythm) GI: Normal bowel sounds, Soft, Non tender, No hepatospenomegaly, No masses Extremities/Musculoskeletal: Normal pulses, Edema (BLEs 1+ edema noted) Skin: Warm,Dry and Intact, No rashes, No breakdown, No significant lesion Neurological: Normal speech, Normal tone, Cranial nerves 3-12 NL Psych/Mental Status: Appropriate Result Diagrams: 12/03/16 16:53 12/03/16 16:53 Labs (last 24 hours): Laboratory Results - last 24 hr 12/02/16 12/02/16 12/02/16 18:02 20:04 20:30 WBC RBC Hgb Hct MCV MCH MCHC RDW Plt Count MPV Neut % (Auto) Lymph % (Auto) [place] % (Auto) Eos % (Auto) Baso % (Auto) Absolute Neuts (auto) Absolute Lymphs (auto) PT INR Puncture Site pH pCO2 pO2 HCO3 Total CO2 Base Excess FiO2 % Mode BiPAP Specimen Drawn By Sodium Potassium Chloride Carbon Dioxide Anion Gap BUN Creatinine Estimated GFR (MDRD) Glucose POC Capillary Glucose 175 H Calculated Osmolality Lactic Acid Calcium Corrected Calcium Magnesium Total Bilirubin AST ALT Alkaline Phosphatase Troponin I 0.40 0.45 H* Total Protein Albumin Triglycerides Cholesterol LDL Cholesterol, Calc VLDL Cholesterol, Calc HDL Cholesterol Cholesterol/HDL Ratio 12/02/16 12/02/16 12/02/16 20:30 22:55 23:10 WBC RBC Hgb Hct MCV MCH MCHC RDW Plt Count MPV Neut % (Auto) Lymph % (Auto) [place] % (Auto) Eos % (Auto) Baso % (Auto) Absolute Neuts (auto) Absolute Lymphs (auto) PT INR Puncture Site pH pCO2 pO2 HCO3 Total CO2 Base Excess FiO2 % Mode BiPAP Specimen Drawn By Sodium Potassium Chloride Carbon Dioxide Anion Gap BUN Creatinine Estimated GFR (MDRD) Glucose POC Capillary Glucose 181 H Calculated Osmolality Lactic Acid 2.2 H Calcium Corrected Calcium Magnesium Total Bilirubin AST ALT Alkaline Phosphatase Troponin I 0.38 Total Protein Albumin Triglycerides Cholesterol LDL Cholesterol, Calc VLDL Cholesterol, Calc HDL Cholesterol Cholesterol/HDL Ratio 12/03/16 12/03/16 12/03/16 05:07 05:15 05:20 WBC RBC Hgb Hct MCV MCH MCHC RDW Plt Count MPV Neut % (Auto) Lymph % (Auto) [place] % (Auto) Eos % (Auto) Baso % (Auto) Absolute Neuts (auto) Absolute Lymphs (auto) PT INR Puncture Site Left radial pH 7.420 pCO2 43.0 pO2 81.0 HCO3 27.9 H Total CO2 29.2 H Base Excess 2.9 H FiO2 % 50% Mode BiPAP 18/07 Specimen Drawn By Stana Sodium Potassium Chloride Carbon Dioxide Anion Gap BUN Creatinine Estimated GFR (MDRD) Glucose POC Capillary Glucose 174 H 183 H Calculated Osmolality Lactic Acid Calcium Corrected Calcium Magnesium Total Bilirubin AST ALT Alkaline Phosphatase Troponin I Total Protein Albumin Triglycerides Cholesterol LDL Cholesterol, Calc VLDL Cholesterol, Calc HDL Cholesterol Cholesterol/HDL Ratio 12/03/16 12/03/16 12/03/16 05:45 05:45 05:45 WBC 18.0 H RBC 4.39 L Hgb 11.7 L Hct 35.7 L MCV 81 MCH 26.7 L MCHC 32.8 L RDW 15.4 H Plt Count 192 MPV 9.2 Neut % (Auto) 87.7 H Lymph % (Auto) 5.5 L [place] % (Auto) 6.6 Eos % (Auto) 0.0 Baso % (Auto) 0.2 Absolute Neuts (auto) 15.66 H Absolute Lymphs (auto) 0.90 PT 13.6 H INR 1.3 Puncture Site pH pCO2 pO2 HCO3 Total CO2 Base Excess FiO2 % Mode BiPAP Specimen Drawn By Sodium 146 Potassium 3.7 Chloride 105 Carbon Dioxide 27 Anion Gap 18 H BUN 34 H Creatinine 1.50 H Estimated GFR (MDRD) 47 L Glucose 182 H POC Capillary Glucose Calculated Osmolality 294 H Lactic Acid Calcium 8.3 L Corrected Calcium 9.6 Magnesium 2.00 Total Bilirubin 0.7 AST 39 ALT 39 Alkaline Phosphatase 124 Troponin I 0.34 Total Protein 5.9 L Albumin 2.7 L Triglycerides 143 Cholesterol 108 LDL Cholesterol, Calc 52.4 VLDL Cholesterol, Calc 28.6 HDL Cholesterol 27.0 L Cholesterol/HDL Ratio 4.0 Lab/DI/Studies Reviewed: EKG: NSR, NO ST or ST wave changes noted Cxray: 1 view Chest x-ray was seen personally patient seems to have diffuse bilateral infiltrates without much change from yesterday Medications Clopidogrel Bisulfate (Plavix) 75 mg PO DAILY [facility] Stop: 12/17/16 08:59 Last Admin: 12/03/16 08:54 Dose: Not Given Lisinopril (Zestril) 40 mg PO DAILY [facility] Stop: 12/17/16 08:59 Last Admin: 12/03/16 09:05 Dose: Not Given Metoprolol Tartrate (Lopressor) 12.5 mg PO BID [facility] Stop: 12/16/16 16:59 Morphine Sulfate (Morphine Sulfate) 2 mg IV Q3H PRN PRN Reason: Chest Pain or Discomfort Stop: 12/09/16 16:59 Last Admin: 12/03/16 09:14 Dose: 2 mg Nitroglycerin (Ntg (Nitrostat Sublingual Tab)) 0.4 mg SL PRN PRN; Protocol PRN Reason: Chest Pain or Discomfort Stop: 12/16/16 16:59 Nitroglycerin (Ntg Paste (Nitropaste)) 0.5 inch TOP Q6 [facility] Stop: 12/17/16 00:00 Last Admin: 12/03/16 05:19 Dose: 0.5 inch Piperacillin Sod/Tazobactam (Sod 4.5 gm/ Dextrose) 100 mls @ 200 mls/hr IV Q6H [facility] Stop: 12/10/16 16:59 Acetaminophen (Tylenol Suppository) 650 mg DC Q6H PRN; Protocol PRN Reason: Mild Pain or Fever above 100.4 Stop: 12/16/16 16:59 Last Admin: 12/03/16 02:32 Dose: 650 mg Acetaminophen (Tylenol Tablet) 650 mg PO Q6H PRN; Protocol PRN Reason: Mild Pain or Fever above 100.4 Stop: 12/16/16 16:59 Albuterol (Proventil, Ventolin) 3 ml NEB Q2H PRN PRN Reason: Wheezing Stop: 12/16/16 16:59 Albuterol (Proventil, Ventolin) 3 ml NEB RTQ6 [facility] Stop: 12/16/16 16:59 Last Admin: 12/03/16 08:45 Dose: 3 ml Atorvastatin Calcium (Lipitor) 10 mg PO DAILY [facility] Stop: 12/16/16 16:59 Last Admin: 12/03/16 08:53 Dose: Not Given Enoxaparin Sodium (Lovenox) 100 mg SQ Q12H [facility] Stop: 12/17/16 00:59 Last Admin: 12/03/16 00:12 Dose: 100 mg Famotidine (Pepcid 20 Mg) 20 mg in 50 mls @ 100 mls/hr IV Q12H [facility] Stop: 12/05/16 20:59 Last Admin: 12/03/16 09:14 Dose: 100 mls/hr Furosemide (Lasix) 40 mg IV Q8H [facility] Stop: 12/16/16 16:59 Last Admin: 12/03/16 09:14 Dose: 40 mg Insulin Detemir (Levemir) 10 units SQ 0730 [facility] Stop: 12/17/16 07:29 Last Admin: 12/03/16 07:27 Dose: Not Given Insulin Human Regular (Humulin R) 0 units SQ ACHS KATHI PRN Reason: Protocol Stop: 12/16/16 16:59 Last Admin: 12/03/16 05:26 Dose: 3 units Labetalol HCl (Trandate, Normodyne) 10 mg IV Q3H PRN PRN Reason: SBP Above 160 Stop: 12/16/16 16:59 Lact Acid/Bifidobact/Lact [place]/Streptoc Th (Yun Q) 1 tab PO BIDLS [facility] Stop: 12/17/16 16:59 Levofloxacin/Dextrose (Levaquin 750 Mg) 750 mg in 150 mls @ 100 mls/hr IV Q24H [facility] Stop: 12/10/16 11:59 Potassium Chloride (Klor-Con M20) 20 meq PO BIDWM [facility] Stop: 12/16/16 16:59 Last Admin: 12/03/16 08:53 Dose: Not Given Risperidone (Risperdal) 2 mg PO HS [facility] Stop: 12/16/16 20:59 Last Admin: 12/02/16 21:20 Dose: 2 mg Rosuvastatin Calcium (Crestor) 20 mg PO QAM [facility] Stop: 12/17/16 08:59 Last Admin: 12/03/16 08:53 Dose: Not Given Sitagliptin Phosphate (Januvia) 50 mg PO DAILY [facility] Stop: 12/17/16 08:59 Last Admin: 12/03/16 08:53 Dose: Not Given Sertraline HCl (Zoloft) 100 mg PO QHS [facility] Stop: 12/16/16 20:59 Last Admin: 12/02/16 21:22 Dose: 100 mg - Assessment/Plan (1) Acute respiratory failure with hypoxia Acute J96.01 - ACUTE RESPIRATORY FAILURE WITH HYPOXIA Comment/Plan: Patient has diffuse bilateral infiltrates I would agree to continue on aggressive diuresis to improve his pulmonary edema he has been relatively stable on the current BiPAP setting however he remains critically ill and could end up on the ventilator I would check his x-ray and blood gas in the morning continue antibiotics including Zosyn and Levaquin, reportedly patient was given 2 doses of morphine for anxiety and has been on metoprolol to control his tachycardia and was given digoxin for atrial fib flutter as well continue nebulizers supportive care at this time along with diuresis. Cardiology consult is appreciated (2) Congestive heart failure Acute I50.9 - HEART FAILURE, UNSPECIFIED systolic acute I50.21 - Acute systolic (congestive) heart failure Comment/Plan: Continue aggressive diuresis (3) Severe sepsis Acute A41.9 - SEPSIS, UNSPECIFIED ORGANISM; R65.20 - SEVERE SEPSIS WITHOUT SEPTIC SHOCK Comment/Plan: Continue antibiotics including Levaquin and Zosyn continue other supportive care (4) Bacterial pneumonia Suspected J15.9 - UNSPECIFIED BACTERIAL PNEUMONIA Comment/Plan: No change in current treatment at this time white count is improving would repeat chest x-ray and blood gas in the morning (5) Acute kidney injury Acute N17.9 - ACUTE KIDNEY FAILURE, UNSPECIFIED Comment/Plan: Stable at this time I personally saw and evaluated the patient.: Yes Total Face to Face Time: 35 minutes Case Care Discussed with: Patient, Nursing Staff Education/Counseling Given To: Patient Education/Counseling Given Regarding: Diagnosis, Treatment, Prognosis, Follow Up , Disposition Plan
--- NOTE | 2016-12-03 10:12 | PCM.CARDCO ---
Consultation Date: 12/03/16 Requesting Physician: Renny Eid (pulm edema) Consulting Doctor: Rashid Ladd Travel Outside of [place] in the Last 3 Months?: No Consultation Note: History of Present Illness: THe pt is a 66 yo WM diabetic followed at [facility] here in [place]. Has [facility] about [facility]. He was last seen in our practice by Dr. Garcia in 2012, when he was doing well clinically. A perfusion stress test in 2011 showed no ischemia and an EF of 49%. Pt is seen in ICU, very dyspneic on BIPAP, so most hx is obtained from sister Inga who lives close by, sees him regularly, and is farm truck driver. She reports he was doing fine at [place], then when on to worsening SOB over the last week, becoming severe last night, prompting her to bring him to ER, where he presented in overt pulmonary edema. Started on BIPAP, full angicoagulation, antibiotics and IV Lasix. Pt reports being a more comfortable now on BIPAP. No chest pain in recent days/weeks. No palpitations per pt, no syncope, near- syncope or episodes of unresponsiveness per sister Past Medical History: DM, HBP, dyslipidemia, CAD s/p CABG Past Surgical History: CANG about 2003 at [facility] Allergies No Known Allergies Allergy (Verified 12/02/16 15:23) Home Medications Amlodipine Besylate 10 mg PO DAILY 12/02/16 Clopidogrel Bisulfate [Plavix] 75 mg PO DAILY 12/02/16 Furosemide [Lasix] 40 mg PO BID 12/02/16 Insulin Detemir [Levemir] 10 units SQ DAILY 12/02/16 Lisinopril [Zestril] 40 mg PO DAILY 12/02/16 Metformin HCl 1,000 mg PO BID 12/02/16 Potassium Chloride [Klor-Con M20] 20 meq PO DAILY 12/02/16 Risperidone [Risperdal] 2 mg PO QHS 12/02/16 Rosuvastatin Calcium [Crestor] 20 mg PO DAILY 12/02/16 Sertraline HCl [Zoloft] 100 mg PO QHS 12/02/16 Sitagliptin Phosphate [Januvia] 50 mg PO DAILY 12/02/16 Family History: + CAD in parents. Two sisters free of heart disease Social History: Traveled outside the [place] in the last 3 months? No Never smoker Lives alone, never , no children. Two sisters in town, Inga and Nissa Review of Systems: No hx TIA/CVA. No recent fever, chills. Physical Examination: Temperature: 99.3 F (12/03/16 07:00)HR: 126 (12/03/16 09:00)RR: 29 (12/03/16 09 :14)BP: 137/90 (12/03/16 09:00) SAT:92 (12/03/16 09:00) [] Physical Exam GEN: Age apporpriate, mildly overweight, dyspneic on BIPAP VS: as above HEENT: neck veins plethoric, carotids normal CHEST: rales throughout, mild diffuse wheeze COR: distant s1,s2, no audible murmur or gallop ABD: soft, no mass or distention EXTREM: trace if any edema, no clubbing or cyanosis SKIN: warm, dry NEURO: verbally responsive, oriented, no focal motor deficit. LAB/DI: [] Laboratory Tests 12/02/16 12/02/16 12/02/16 15:21 15:21 15:21 WBC 23.3 H RBC 4.78 Hgb 12.6 L Hct 38.9 L Plt Count 234 Seg Neuts % (Manual) 91 H Band Neutrophils % 2 Lymphocytes % (Manual) 2 L INR pH pCO2 pO2 HCO3 FiO2 % Mode BiPAP Sodium 144 Potassium 3.6 Chloride 102 Carbon Dioxide 20 L BUN 25 H Creatinine 1.30 H Estimated GFR (MDRD) 55 L Magnesium Total Bilirubin AST ALT Alkaline Phosphatase Troponin I [id number]-Jifeikqvfrz Pept 21202 H Cholesterol LDL Cholesterol, Calc HDL Cholesterol TSH 0.56 12/02/16 12/02/16 12/03/16 18:02 22:55 05:15 WBC RBC Hgb Hct Plt Count Seg Neuts % (Manual) Band Neutrophils % Lymphocytes % (Manual) INR pH 7.420 pCO2 43.0 pO2 81.0 HCO3 27.9 H FiO2 % 50% Mode BiPAP 19/8 Sodium Potassium Chloride Carbon Dioxide BUN Creatinine Estimated GFR (MDRD) Magnesium Total Bilirubin AST ALT Alkaline Phosphatase Troponin I 0.40 0.38 Xdc-H-Orlfaimpkac Pept Cholesterol LDL Cholesterol, Calc HDL Cholesterol TSH 12/03/16 12/03/16 05:45 05:45 WBC RBC Hgb Hct Plt Count Seg Neuts % (Manual) Band Neutrophils % Lymphocytes % (Manual) INR 1.3 pH pCO2 pO2 HCO3 FiO2 % Mode BiPAP Sodium 146 Potassium 3.7 Chloride 105 Carbon Dioxide 27 BUN 34 H Creatinine 1.50 H Estimated GFR (MDRD) 47 L Magnesium 2.00 Total Bilirubin 0.7 AST 39 ALT 39 Alkaline Phosphatase 124 Troponin I 0.34 Syc-W-Jtezkplktcc Pept Cholesterol 108 LDL Cholesterol, Calc 52.4 HDL Cholesterol 27.0 L TSH EKGs: adm and this AM: Suspect atrial flutter with 2:1 conduction; poor anterior R progression, diffuse non=specific ST-T changes, no ST shift tele: regular tachycardia persists at 130/min CXR: cardiomegaly and white-out of both lung esparza : pulm edema +/- pneumonitis Echo today: four chamber dilatation, anterior akinesis, severe diffuse hypokinesis, EF approx 12%, mild/mod MR, mild/mod TR, elevated central venous and at least moderately elevated pulm artery pressure IMPRESSION: (1) 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 ? interval "silent' myocardial infarction (2) atrial flutter - ? duration, symptomatically unappreciated - Recommendations PLAN: pt is accepting of/ desirous of aggressive approach, best therapy, open to transfer to tertiary center Will continue aggressive diuresis, and move to quickly slow HR in afutter, incl digoxin to avoid hypotension May need pressor support soon.
--- NOTE | 2016-12-03 10:13 | CAPUECHO ---
INDICATION: ACUTE DECOMP CHF HEIGHT: 172.7 cm (5 ft 8.0 in) WEIGHT: 117.9 kg (260.0 lbs) BP: 118/85 BSA: 2.100184 m MEASUREMENTS 2D RVIDd: 3.4 cm LA Diam: 5.2 cm M-MODE IVSd: 0.8 cm LVIDd: 6.1 cm LVPWd: 0.8 cm LVIDs: 5.8* cm EF(Teich): 12 % Ao Diam: 3.7 cm LA Diam: 4.8 cm DOPPLER MV E Manan: 0.00 m/s MV A Manan: 0.85 m/s LVOT Vmax: 0.36 m/s AV Vmax: 0.89 m/s TR Vmax: 3.01 m/s TR maxP mmHg RVSP: 51.24 mmHg FINDINGS ------- Procedure:2D images, m-mode, color and spectral Doppler were obtained and reviewed. ECG rhythm:Resting tachycardia (HR>100bpm). Study quality:This was a technically difficult study with suboptimal views. Pt unable to lie supine . Left Ventricle:The left ventricle is dilated. There is extensive anterior akinesis, with severe dif fuse hypokinesis in other segments . Global sys tolic function is severely impaired with, an EF 10 -15% Restrictive LV filling pattern, consistent with elevated LA pressure and advanced diasto lic dysfunction. Right Ventricle:The right ventricle is moderately enlarged. The right ventricular systolic functio n is moderately impaired. Left Atrium:The left atrium is markedly dilated. Right Atrium:The right atrium is moderately enlarged. Aortic Valve:The aortic valve is trileaflet with mild aortic valve sclerosis. There is no evid ence of aortic regurgitation. Mitral Valve:Normal appearing mitral valve, thin pliable leaflets. 2+ mild/mod mitral regurgitat ion, secondary to LV dysfunction. Tricuspid Valve:The tricuspid valve appears structurally normal. [id number]-gn-wytmeczi tricuspid regurg itation present. The right ventricular systolic pressure, as measured by Doppler, is 51 mmhg. Pulmonic Valve:The pulmonic valve is normal. Moderate pulmonic regurgitation. Aorta:The aortic root, ascending aorta and aortic arch appear normal. IVC:The inferior vena cava is dilated with no significant inspiratory collapse which is consistent e stimated right atrial pressure of >20 mmHg. Pericardium:There is no pericardial effusion. CONCLUSIONS 1. dilated left ventricle with extensive anterior akinesis, apex not well seen, severe diffuse hypo kinesis, very markedly depressed LVEF 10-15%; advanced diastolic dysfunction with restrictive katiana ling 2. mild/mod mitral regurgitation and marked left atrial dilatation, secondary to #1 3. di lated right heart with mild/mod TR, elevated central venous and at least moderately elevated pulm ar patrizia pressure 4. mild aortic sclerosis No prior study available for comparison Electronically Signed By: Rashid Ladd MD-- Electronically Signed On: 10:13:04
[2016-12-03] MEDS: PIPERACILLIN AND TAZOBACTAM 4.5 GM in D5W 100 ML IV SCH ×3 (10:23→22:03)
[2016-12-03] MEDS: Levofloxacin 750 mg/150 ml D5W 750 MG/150 ML RTU IV SCH (11:54)
[2016-12-03] MEDS: METOPROLOL 5 MG/5 ML SDV IV SCH ×6 (11:55→17:53)
[2016-12-03] MEDS: PROBIOTIC BLEND TAB PO SCH ×2 (11:56→17:43)
[2016-12-03] MEDS ORDERED: DIGOXIN 0.5 MG/2 ML (250 MCG /ML) AMPULE IV ONE (12:00)
[2016-12-03] MEDS: SPIRONOLACTONE 50 MG TAB PO SCH (12:17)
[2016-12-03] MEDS: DIGOXIN 0.5 MG/2 ML (250 MCG /ML) AMPULE IV SCH ×3 (15:16→22:04)
[2016-12-03] MEDS ORDERED: CEFTRIAXONE 1 GM in D5W 100 ML IV SCH (16:00)
[2016-12-03 17:13] LABS: AUTOMATED BASOPHIL 0.1 % (0-2); AUTOMATED EOSINOPHIL 0.1 % (0-5); AUTOMATED LYMPH 5.5 % (17-44); AUTOMATED MONOCYTE 6.2 % (3-10); AUTOMATED NEUTROPHIL 88.1 % (45-76); MPV 8.9 fL (7.4-10.4)
[2016-12-03 17:32] LABS: BLOOD UREA NITROGEN 45 MG/DL (9-20); CALCIUM 8.2 MG/DL (8.4-10.2); CALCULATED OSMOLALITY 302 MOs/Kg (270-290); CHLORIDE 107 mEq/L (98-107); GLUCOSE 171 MG/DL (70-99); SODIUM LEVEL 149 mEq/L (137-146)
[2016-12-03] MEDS ORDERED: AZITHROMYCIN 500 MG in D5W 250 ML IV SCH (18:00)
[2016-12-03] MEDS: LABETALOL 20 MG/4 ML SYRINGE IV PRN (20:05)
[2016-12-03] MEDS: CHLORHEXIDINE (HIBICLENS) 4 OZ BOTTLE TOP SCH (20:52)
[2016-12-03] MEDS: SERTRALINE HCL 100 MG TAB PO SCH (22:03)
[2016-12-03] MEDS: RISPERIDONE 1 MG TAB PO SCH (22:03)
[2016-12-04] MEDS: METOPROLOL 5 MG/5 ML SDV IV SCH ×3 (00:27→13:31)
[2016-12-04] MEDS: NITROGLYCERINE 2 % OINTMENT PACK TOP SCH ×3 (00:28→12:10)
[2016-12-04] MEDS: ENOXAPARIN 100 MG PFS SQ SCH ×2 (00:29→12:17)
[2016-12-04] MEDS: ALBUTEROL 0.083% 3 ML NEB NEB SCH ×2 (02:25→07:28)
[2016-12-04] MEDS: PIPERACILLIN AND TAZOBACTAM 4.5 GM in D5W 100 ML IV SCH ×2 (04:32→10:11)
[2016-12-04] MEDS: LABETALOL 20 MG/4 ML SYRINGE IV PRN ×3 (04:34→08:19)
[2016-12-04] MEDS: MORPHINE 2 MG/ML INJECTION IV PRN ×2 (04:40→08:09)
[2016-12-04] MEDS: SODIUM CHLORIDE 0.9% 3 ML FLUSH FLUSH SCH (04:46)
[2016-12-04] MEDS: FUROSEMIDE 40 MG/4 ML VIAL IV SCH (05:24)
[2016-12-04 06:11] LABS: AUTOMATED BASOPHIL 0.1 % (0-2); AUTOMATED EOSINOPHIL 0.1 % (0-5); AUTOMATED LYMPH 6.4 % (17-44); AUTOMATED MONOCYTE 6.2 % (3-10); AUTOMATED NEUTROPHIL 87.2 % (45-76); MPV 8.9 fL (7.4-10.4)
[2016-12-04 06:26] LABS: BLOOD UREA NITROGEN 54 MG/DL (9-20); CALCIUM 8.2 MG/DL (8.4-10.2); CALCULATED OSMOLALITY 311 MOs/Kg (270-290); CHLORIDE 108 mEq/L (98-107); GLUCOSE 176 MG/DL (70-99); SODIUM LEVEL 152 mEq/L (137-146)
[2016-12-04 06:33] LABS: PT-INR 1.5
[2016-12-04 06:43] VITALS: BMI 32.3
[2016-12-04] MEDS: SITAGLIPTIN 50 MG TAB PO SCH (07:32)
[2016-12-04] MEDS: LISINOPRIL 40 MG TAB PO SCH (07:32)
[2016-12-04] MEDS: CLOPIDOGREL 75 MG TAB PO SCH (07:32)
[2016-12-04] MEDS: ROSUVASTATIN 10 MG TAB PO SCH (07:32)
[2016-12-04] MEDS: POTASSIUM CHLORIDE 20 MEQ TAB PO SCH (07:32)
[2016-12-04] MEDS: SPIRONOLACTONE 50 MG TAB PO SCH (07:32)
--- NOTE | 2016-12-04 07:52 | DIRPT ---
CLINICAL DATA: Respiratory failure EXAM: PORTABLE CHEST 1 VIEW COMPARISON: Portable chest x-ray of December 03, 2016 FINDINGS: The lungs remain mildly hypoinflated. Fluffy alveolar opacities persist bilaterally. The cardiac silhouette is enlarged but indistinct. The pulmonary vascularity is indistinct. There are 7 intact sternal wires demonstrated. IMPRESSION: Persistent widespread bilateral alveolar opacities consistent with pneumonia. An element of pulmonary edema cannot be excluded. Overall there has not been significant interval change since yesterday's study. Electronically Signed By: Parker Woodson M.D. On: 12/04/2016 07:49
[2016-12-04] MEDS: INSULIN DETEMIR 100 UNITS/ML PEN SQ SCH (08:07)
[2016-12-04] MEDS: Famotidine 20 mg/50 ml RTU 20 MG/50 ML IVB IV SCH (08:08)
[2016-12-04 08:09] LABS: ALLEN'S TEST PASS; BEb -0.2 (+/- 2); TCO2 27.3 MMOL/L (23-27)
[2016-12-04] MEDS: ACETAMINOPHEN 650 MG SUPP PR PRN (08:09)
[2016-12-04 08:10] LABS: ABG Draw Site Right Radial
[2016-12-04] MEDS: REGULAR INSULIN 100 UNITS/ML - 3 ML VIAL SQ SCH ×2 (08:13→12:14)
[2016-12-04] MEDS ORDERED: FENTANYL 2,500 MCG/250 ML BAG IV ONE (08:26)
[2016-12-04] MEDS ORDERED: CHAPSTICK LIP BALM TOP PRN (08:28)
[2016-12-04] MEDS ORDERED: LORAZEPAM 2 MG/ML VIAL IV PRN (08:28)
[2016-12-04] MEDS ORDERED: Norepinephrine in D5W infusion 8,000 MCG/250 ML BAG IV ONE (08:39)
--- NOTE | 2016-12-04 08:43 | PCM.DCS92 ---
- Final/Secondary Discharge Diagnosis (1) Acute respiratory failure with hypoxia Acute J96.01 - ACUTE RESPIRATORY FAILURE WITH HYPOXIA Present on Admission: Yes Comment: Acute respiratory failure is evident with tachypnea and continued use of BiPAP. Concerned that pneumonia and CHF are working together and causing demand ischemia with hypoxemia. Patient is become more tachypneic hypoxic and requiring intubation with increased demand for supplemental oxygen. (2) Acute kidney injury Acute N17.9 - ACUTE KIDNEY FAILURE, UNSPECIFIED Present on Admission: Yes Comment: Creatinine has now climbed to 1.9 and for this reason holding Servando inhibition but continuing loop diuretics. (3) Congestive heart failure Acute I50.9 - HEART FAILURE, UNSPECIFIED Present on Admission: Yes systolic acute I50.21 - Acute systolic (congestive) heart failure Comment: Unfortunately patient is deteriorating overnight and requiring intubation. Renal failure has progressed so holding the SERVANDO-inhibitor. IV Lasix is ordered in addition to the antibiotics for his bilateral pneumonia. (4) Demand ischemia Acute I24.8 - OTHER FORMS OF ACUTE ISCHEMIC HEART DISEASE Present on Admission: Yes Comment: Demand ischemia is evident with elevated troponin 0.45. (5) Atrial flutter Acute I48.92 - UNSPECIFIED ATRIAL FLUTTER Present on Admission: Yes typical I48.3 - Typical atrial flutter (6) CAD (coronary artery disease) Chronic I25.10 - ATHSCL HEART DISEASE OF [place] CORONARY ARTERY W/O ANG PCTRS Present on Admission: Yes [place] artery [place] heart without angina I25.10 - Atherosclerotic heart disease of [place] coronary artery without angina pectoris (7) DM type 2, uncontrolled, with renal complications Chronic E11.29 - TYPE 2 DIABETES MELLITUS W OTH DIABETIC KIDNEY COMPLICATION; E11.65 - TYPE 2 DIABETES MELLITUS WITH HYPERGLYCEMIA Present on Admission: Yes with chronic kidney disease with usp use stage 3 (moderate) E11.22 - Type 2 diabetes mellitus with diabetic chronic kidney disease; E11.65 - Type 2 diabetes mellitus with hyperglycemia; N18.3 - Chronic kidney disease, stage 3 (moderate); Z79.4 - retirement (current) use of insulin Comment: Sliding scale coverage glycohemoglobin 6.6 urine microalbumin is pending. Discharge Disposition: Home Discharge Condition: Improved Fuctional Discharge Status: Bed Bound Discharge Home Medication List Amlodipine Besylate 10 mg PO DAILY 12/02/16 [History Confirmed 12/02/16 Last Taken 12/02/16] Clopidogrel Bisulfate [Plavix] 75 mg PO DAILY 12/02/16 [History Confirmed Last Taken 12/02/16] Furosemide [Lasix] 40 mg PO BID 12/02/16 [History Confirmed 12/02/16 Last Taken 12/02/16] Insulin Detemir [Levemir] 10 units SQ DAILY 12/02/16 [History Confirmed Last Taken 12/02/16] Lisinopril [Zestril] 40 mg PO DAILY 12/02/16 [History Confirmed 12/02/16 Last Taken 12/02/16] Metformin HCl 1,000 mg PO BID 12/02/16 [History Confirmed 12/02/16 Last Taken ] Potassium Chloride [Klor-Con M20] 20 meq PO DAILY 12/02/16 [History Confirmed Last Taken 12/02/16] Risperidone [Risperdal] 2 mg PO QHS 12/02/16 [History Confirmed 12/02/16 Last Taken 12/01/16] Rosuvastatin Calcium [Crestor] 20 mg PO DAILY 12/02/16 [History Confirmed Last Taken 12/02/16] Sertraline HCl [Zoloft] 100 mg PO QHS 12/02/16 [History Confirmed 12/02/16 Last Taken 12/01/16] Sitagliptin Phosphate [Januvia] 50 mg PO DAILY 12/02/16 [History Confirmed 12/02 Last Taken 12/02/16] 12/04/16 05:35 12/04/16 05:35 Microbiology 12/02/16 15:28 Blood Blood Culture - Final No growth aerobically or anaerobically at 120 hours. NORMAL VALUE = No growth 12/02/16 15:21 Blood Blood Culture - Final No growth aerobically or anaerobically at 120 hours. NORMAL VALUE = No growth 12/02/16 16:39 Urine - De Leon Catheter Urine Culture - Final No growth <10,00O CFU/ml 12/02/16 18:50 Nares Nasal Screen MRSA (PCR)(STEPHANIE) - Final NEGATIVE for MRSA DNA O2 Device: Vent Diet at Discharge: Diabetic - DC Summary Notes HPI/Notes: This is a 66-year-old gentleman last admission to our facility in 2010 no admissions since then to any other hospitals. Patient presents complaining of worsening shortness of breath and weakness he has had some lower extremity edema but is sister reports that is been much worse in the past. On rapid evaluation he is found to have a PO2 of 37 and started on BiPAP treatment immediately. Chest x-ray reveals diffuse dense alveolar filling bilaterally concerning for infection, pulmonary edema, pulmonary hemorrhage or significant metastatic disease. His O2 his very low and requiring significant support from the BiPAP. He appears to be in congestive heart failure with lower extremity edema and rales and rhonchi on examination his lactic acid is almost 6. [place] [address]. His respiratory rate is in the high 20s to 30s. Given the above signs symptoms and findings patient was admitted into the ICU for treatment of severe sepsis, pneumonia, and severe exacerbation of acute congestive heart failure. Hospital Course Note:: Discharge summary on patient named ISELA HOLLOWAY admitted to [facility] on 12/02/16 by Jillian Killian MD. Date of discharge is 12/04/2016. He was admitted with bilateral pneumonia and CHF. Ejection fraction on echocardiogram yesterday was estimated between 10 and 15%. He also had atrial flutter which continues presently with a heart rate of 105 requiring beta- blockade and digoxin. His troponins reached maximum was 0.45 felt to be due to demand ischemia. The pneumonia is being treated with Zosyn Levaquin and unfortunately is still febrile with temperature 101.3 F. chest x-ray shows bilateral extensive infiltrates with significant cardiomegaly. Patient was intubated this morning with progressive respiratory failure and hypoxemia. 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 When given Diprivan during intubation his systolic blood pressure dropped to the 70s and was immediately given 45 of Levophed IV bolus. With systolic blood pressures between 100-105 now at 9:00 a.m.. Total Time: Critical care time spent 1 hour 46 min Code: 291 (292, 292) - Physical Exam Vital Signs: Last Vital Signs Temp 101.3 F H 12/04/16 07:00 Pulse 121 H 12/04/16 08:00 Resp 23 12/04/16 07:26 BP 166/135 H 12/04/16 08:00 Pulse Ox 95 12/04/16 08:18 Oxygen Pulse Oxygen Saturation 95 O2 Device BiPAP Oxygen Flow Rate Fraction of Inspired Oxygen ( 80 FIO2) Constitutional: Distress (severe). negative: Well nourished, Well appearing Oriented to: Time, Person, Place - HEENT Head: Normal (normocephalic, atraumatic.), Other (No cervical lymphadenopathy. No supraclavicular lymphadenopathy. Neck: No palpable mass, supple , trachea midline.) Eye: Normal (pupils equal, reactive to light, and round; EOMI, Sclera white) Oropharynx: Normal (Pharynx: Moist without exudate,Gums-no swelling, No oropharyngeal lesions or erythema, Mucous membranes are dry.) ENT EAC: Normal (No oropharyngeal lesions or erythema. Mucous membranes are dry. ) TMJ: Normal Nose: No Symptoms Reported (septum midline, Nares patent, without discharge or bleeding.) - Respiratory/Cardiovascular Respiratory: Diminished, Rales. negative: Rhonchi, Wheezes Cardiovascular: Irregular. negative: Bradycardia, Tachycardia - GI Auscultation: Normal (normal active sounds) Palpation: Normal (Soft,non distended,nontender. No hepatosplenomegaly.) Tenderness: Non tender (No rebound or guarding) Riddle's Sign: Negative - Musculoskeletal Back: Normal (Non-Tender) Extremities: Edema (1+) - Integumentary Skin: Normal (Warm dry no rashes) Lymphatics: Normal (No cervical lymphadenopathy. No supraclavicular lymphadenopathy.) - Neurologic Memory Impaired: Normal Motor Function: Normal (Motor 5/5 throughout.Normal tone, Pulses 2+ No cyanosis or edema, FROM) Cranial Nerve: Normal (CN II-XII intact sensation, strength 5/5) Cerebellar: Normal (Babinski: toes downgoing bilaterally. Intact Finger to nose. Sensory grossly intact to light touch. Intact rapid alternating movements bilaterally. No pronator drift.) Mood Description: Anxious Thought: Coherent Perception: Normal (Normal and appropriate affect.)
--- NOTE | 2016-12-04 08:50 | CAPUEKG ---
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
[2016-12-04] MEDS ORDERED: FENTANYL 2,500 MCG/250 ML BAG IV SCH (09:00)
--- NOTE | 2016-12-04 09:22 | PCM.CARD ---
- Subjective Subj: No ROS available. Pt's oxygenation deteriorated this AM, required intubation, now sedated on vent. No c/o chest pain overnight per RN, but had worsening dyspnea overnight, severe distress this AM, pt ripped BIPAP off. Vital Signs: Last Vital Signs Temp 101.3 F H 12/04/16 07:00 Pulse 106 12/04/16 08:36 Resp 12 12/04/16 08:36 BP 75/52 L 12/04/16 08:36 Pulse Ox 98 12/04/16 08:36 Intake & Output 12/01/16 12/02/16 12/03/16 12/04/16 23:59 23:59 23:59 23:59 Intake Total 798 720 263 Output Total 340 6430 585 Balance 071 -709 -583 Patient's weight 99 kg 96.434 kg PE: Physical Exam GEN: Pt intubated on vent. Diaphoretic HR 110 in flutter, BP 124/76 VS: as above HEENT: neck veins plethoric, carotids symmetrically wnl CHEST: aerating bilat, bilat rales posterolateral COR: soft s1, s2, no audible murmur or gallop ABD: soft, no distention EXTREM: rad, PT 2+ bilat, no edema SKIN: cool and clammy NEURO: sedated on vent; has been moving all 4s Lab/DI Results Reviewed: Laboratory Tests 12/02/16 12/03/16 12/04/16 15:21 05:45 05:35 WBC Hgb Hct Plt Count pH pCO2 pO2 HCO3 Vent Mode FiO2 % Sodium 144 152 H Potassium 3.6 3.7 Chloride 108 H Carbon Dioxide 28 BUN 25 H 54 H Creatinine 1.30 H 1.90 H Estimated GFR (MDRD) 36 L Calcium 8.2 L Troponin I 0.33 0.34 [id number]-F-Rokwspyjrgn Pept 77282 H 12/04/16 12/04/16 05:35 08:02 WBC 16.8 H Hgb 11.7 L Hct 36.1 L Plt Count 225 pH 7.350 pCO2 47.0 H pO2 57.0 L HCO3 25.9 Vent Mode Bipap 12/6 FiO2 % 50% Sodium Potassium Chloride Carbon Dioxide BUN Creatinine Estimated GFR (MDRD) Calcium Troponin I Jdj-P-Fxiwndfshow Pept tele: flutter; rate was better controlled overnight, tachycardic in resp distress this AM, now 110/min EKG: this AM flutter, no acute ST shift, no evolution. CXR: bilat dense alveolar iinfitrates: widespread airspace disease: edema/ pneumonia IMPRESSION: (1) persistent acute/chronic combined systolic/diastolic CHF - severe cardiomyopathy, no evidence of recent infarction - ? tachycardiopathy (2) persistent atrial flutter, rate control improved (3) worsening resp distress/hypoxemia despite modest diuresis and improved HR control - together with fever and leukocytosis suggest important element of pneumonia - Plan REC: continue current therapy, incr furosemide dose. Agree that pt best served by transfer to tertiary center at this time, have discussed transfer with Dr. Mickie Patrick at [facility], unfortunately they are "RED", no beds, and pt is on wait list there. Pt also on wait list at [facility]. I would advocate transfer to center with experience in advanced heart failure therapies.
[2016-12-04] MEDS ORDERED: SODIUM CHLORIDE 0.9% 5 ML FLUSH FLUSH PRN (09:24)
--- NOTE | 2016-12-04 09:26 | HIMOPRPT ---
DATE OF PROCEDURE: 12/04/16 PREOPERATIVE DIAGNOSIS: Respiratory failure, congestive heart failure. POSTOPERATIVE DIAGNOSIS: Same PROCEDURE: Insertion of a right internal jugular 16 cm triple-lumen venous access catheter under ultrasound guided localization of the vein. SURGEON: Marcelino Solorzano MD ANESTHESIA: Local with 1% Xylocaine COMPLICATIONS: None, chest x-ray is pending. SPECIMENS: None PACKINGS AND DRAINS: None. BLOOD LOSS: 0 cubic centimeters. OPERATIVE FINDINGS AND TECHNIQUE: With consent the patient was seen at his bedside in room 4 of the intensive care unit. The patient is placed in Trendelenburg position. The right neck and right subclavian areas were prepped and draped in the usual fashion. Ultrasound interrogation of the right neck revealed a widely patent right internal jugular vein in its normal anatomic location lateral to the carotid artery. Area of skin overlying the right internal jugular vein was injected with 1% Xylocaine. Under ultrasound guidance the right internal jugular vein was penetrated quite easily. Guidewire was threaded and met no resistance. Skin incision was made in the tract was dilated. 16 cm triple-lumen venous access catheter was then placed over the guidewire. All 3 ports of the catheter had excellent blood return and easy flush. The catheter sewn with 3-0 silk suture. Dressings were applied. Chest x-ray is pending.
--- NOTE | 2016-12-04 09:28 | PCM.SURGCO ---
Consultation Date: 12/04/16 Requesting Physician: Renny Eid Donor Services Specialist: Marcelino Solorzano Consult Reason: Line Placement, Poor Venous Access - History of Present Illness 66-year-old male with increasing shortness of breath. He was admitted with respiratory failure and congestive heart failure as well as other comorbid conditions. He had worsening pulmonary status was on BiPAP. He was reportedly noted to have a low ejection fraction. He got intubated this morning I was asked to place central line and placement. The central line was placed rather urgently. Of note is that the patient is fully anticoagulated on Lovenox. Is deemed a medical emergency to place central line in this patient. He requires central venous access for continued monitoring and therapy. Chief Complaint: Patient presents at the behest of his family due to 2 days of worsening shortness of breath - Past Medical and Surgical History Cardiac History: Reports: Congestive Heart Failure, CABG Systemic History: Reports: Diabetes Psychological History: Denies: Substance Use Disorder Past Surgical History: Reports: CABG Allergies No Known Allergies Allergy (Verified 12/02/16 15:23) Home Medications Amlodipine Besylate 10 mg PO DAILY 12/02/16 Clopidogrel Bisulfate [Plavix] 75 mg PO DAILY 12/02/16 Furosemide [Lasix] 40 mg PO BID 12/02/16 Insulin Detemir [Levemir] 10 units SQ DAILY 12/02/16 Lisinopril [Zestril] 40 mg PO DAILY 12/02/16 Metformin HCl 1,000 mg PO BID 12/02/16 Potassium Chloride [Klor-Con M20] 20 meq PO DAILY 12/02/16 Risperidone [Risperdal] 2 mg PO QHS 12/02/16 Rosuvastatin Calcium [Crestor] 20 mg PO DAILY 12/02/16 Sertraline HCl [Zoloft] 100 mg PO QHS 12/02/16 Sitagliptin Phosphate [Januvia] 50 mg PO DAILY 12/02/16 - Social History Social History: Denies: Substance Use Disorder - Family History Reports: Hypertension, Diabetes, Cancer (SKIN), Stroke (SELF; BROTHER), Cardiac Disorders - Review of Systems Yes Review of systems cannot be obtained due to the patient's medical condition (Being intubated and sedated) - Physical Exam Vital Signs: Initial Vitals Respiratory Rate 26 H 12/02/16 15:29 Pulse Oxygen Saturation 99 12/02/16 15:29 Exam: General: White male intubated and sedated. HEENT: Normocephalic atraumatic. Sclerae nonicteric. Extraocular movements intact. Oral mucosa pink and moist. Neck: Supple. Nontender. Good range of motion. No masses. Trachea is midline. No cervical adenopathy. Lungs: Clear to auscultation. No rhonchi or wheezing. Heart: Tachycardic. Abdomen: Soft, nontender, nondistended. Back: No CVA tenderness. No ecchymosis. Skin: No jaundice - Lab Results 12/04/16 05:35 12/04/16 05:35 - Assessment/Plan (1) Acute respiratory failure with hypoxia J96.01 - ACUTE RESPIRATORY FAILURE WITH HYPOXIA Acute Present on Admission: Yes Comment: Plan central line in this patient. Will perform this under ultrasound guidance in the right internal jugular area. Family's consent has been signed. This an emergency procedure. The patient is fully anticoagulated on Lovenox and increases bleeding risk. However the benefits of placed a central line far away the risks in the opinion of the medical staff. Central line will be placed at the bedside. Case Care Discussed with: Consultants, Nursing Staff
[2016-12-04 09:40] LABS: ALLEN'S TEST PASS; BEb -2.6 (+/- 2); TCO2 28.9 MMOL/L (23-27)
[2016-12-04 09:42] LABS: ABG Draw Site Right Radial
[2016-12-04 09:43] LABS: MODE AC 12 RATE
[2016-12-04 09:44] LABS: MODE BIPAP 16/8 RATE
--- NOTE | 2016-12-04 09:53 | DIRPT ---
CLINICAL DATA: Central line placement EXAM: PORTABLE CHEST 1 VIEW COMPARISON: 12/04/2016 FINDINGS: Again noted diffuse bilateral widespread airspace disease consistent with pneumonia or alveolar edema. Status post median sternotomy. Endotracheal tube in place with tip 2.8 cm above the danica. Right IJ central line in place with tip in SVC right atrium junction. There is no pneumothorax. IMPRESSION: Again noted diffuse bilateral airspace disease consistent with widespread pneumonia or alveolar edema. Endotracheal tube in place. Right IJ central line in place. No pneumothorax. Electronically Signed By: Kwaku Garcia M.D. On: 12/04/2016 09:50
[2016-12-04] MEDS ORDERED: DIGOXIN 0.5 MG/2 ML (250 MCG /ML) AMPULE IV ONE (10:00)
[2016-12-04] MEDS ORDERED: ALBUTEROL 6.7 GM MDI INH PRN (10:20)
[2016-12-04 10:29] VITALS: TEMP 100.6
[2016-12-04] MEDS ORDERED: ALBUTEROL 6.7 GM MDI INH SCH ×2 (11:00→14:00)
--- NOTE | 2016-12-04 11:04 | HIM.ANESP ---
INTUBATION Informed of risks, benefits and alternatives described.: Yes (Emergent ETT in ICU) Informed Consent Signed: Unable Indications: Respiratory Insufficiency Pre-oxygenation completed: Yes Intubation Date: 12/04/16 Time of Intubation: 08:31 Inserted in which dept: ICU Inserted By: Zachary Pearce Number of Attempts: 1 ET Insertion Site: Oral Endotracheal ET Tube Size: 8 Tube Position @ Lip: 22 Tube Position: Midline ETCO2 Detector Positive: Yes Breath Sounds Equal Bilaterally: Yes Stocz Used: No (Stan2)
[2016-12-04] MEDS ORDERED: FUROSEMIDE 40 MG/4 ML VIAL IV SCH (12:00)
[2016-12-04] MEDS: PROBIOTIC BLEND TAB PO SCH (12:09)
[2016-12-04] MEDS: Levofloxacin 750 mg/150 ml D5W 750 MG/150 ML RTU IV SCH (12:15)
[2016-12-04] MEDS ORDERED: ROCURONIUM 50 MG/5 ML VIAL IV ONE (12:30)
[2016-12-04 13:32] VITALS: BP 102/59; PULSE 65
--- NOTE | 2016-12-04 13:42 | PCM.PULM ---
Chief Complaint: Respiratory failure acute on chronic with hypoxia Sepsis Congestive heart failure pneumonia Acute renal failure patient in Intensive care unit intubated sedated on ventilator. Apparently the patient's condition got worse earlier and was intubated because of his severe congestive heart failure Current medication list reviewed:yes Notes reviewed:yes, Events from last night noted and discussed with Clinical Staff DVT prophylaxis:yes - Physical Examination Vital Signs and I&O: Last Vital Signs Temp 100.6 F H 12/04/16 10:00 Pulse 65 12/04/16 13:00 Resp 22 12/04/16 13:00 BP 102/59 L 12/04/16 13:00 Pulse Ox 98 12/04/16 13:00 Oxygen Pulse Oxygen Saturation 98 O2 Device Vent Oxygen Flow Rate Fraction of Inspired Oxygen ( 80 FIO2) Intake & Output 12/01/16 12/02/16 12/03/16 12/04/16 23:59 23:59 23:59 23:59 Intake Total 798 720 263 Output Total 320 1060 585 Balance 972 -221 -099 Patient's weight 99 kg 96.434 kg General: No acute distress, Other (Intubated sedated on ventilator) Respiratory: Normal - CTA, Rales (Scattered bilateral) Cardiovascular: Irregular (Atrial flutter) GI: Normal bowel sounds, Soft, Non tender, No hepatospenomegaly, No masses Extremities/Musculoskeletal: Normal pulses, Swelling (trace BLEs noted) Skin: Warm,Dry and Intact, No rashes, No breakdown, No significant lesion Psych/Mental Status: Sedated (Intubated on ventilator) Result Diagrams: 12/04/16 05:35 12/04/16 05:35 Labs (last 24 hours): Laboratory Results - last 24 hr 12/03/16 12/03/16 12/04/16 16:53 20:45 05:35 WBC 16.8 H RBC 4.36 L Hgb 11.5 L Hct 35.3 L MCV 81 MCH 26.4 L MCHC 32.6 L RDW 15.3 H Plt Count 215 MPV 8.9 Neut % (Auto) 88.1 H Lymph % (Auto) 5.5 L [place] % (Auto) 6.2 Eos % (Auto) 0.1 Baso % (Auto) 0.1 Absolute Neuts (auto) 14.78 H Absolute Lymphs (auto) 0.84 PT 15.7 H INR 1.5 Puncture Site pH pCO2 pO2 HCO3 Total CO2 Base Excess Vent Mode FiO2 % Tidal Volume PEEP Specimen Drawn By Sodium Potassium Chloride Carbon Dioxide Anion Gap BUN Creatinine Estimated GFR (MDRD) Glucose POC Capillary Glucose 139 H Calculated Osmolality Lactic Acid Calcium 12/04/16 12/04/16 12/04/16 05:35 05:35 08:02 WBC 16.8 H RBC 4.42 L Hgb 11.7 L Hct 36.1 L MCV 82 MCH 26.6 L MCHC 32.6 L RDW 15.8 H Plt Count 225 MPV 8.9 Neut % (Auto) 87.2 H Lymph % (Auto) 6.4 L [place] % (Auto) 6.2 Eos % (Auto) 0.1 Baso % (Auto) 0.1 Absolute Neuts (auto) 14.62 H Absolute Lymphs (auto) 1.01 PT INR Puncture Site Right radial pH 7.350 pCO2 47.0 H pO2 57.0 L HCO3 25.9 Total CO2 27.3 H Base Excess -0.2 Vent Mode Bipap 16/8 FiO2 % 50% Tidal Volume PEEP Specimen Drawn By Roude Sodium 152 H Potassium 3.7 Chloride 108 H Carbon Dioxide 28 Anion Gap 20 H BUN 54 H Creatinine 1.90 H Estimated GFR (MDRD) 36 L Glucose 176 H POC Capillary Glucose Calculated Osmolality 311 H Lactic Acid Calcium 8.2 L 12/04/16 12/04/16 09:35 12:05 WBC RBC Hgb Hct MCV MCH MCHC RDW Plt Count MPV Neut % (Auto) Lymph % (Auto) [place] % (Auto) Eos % (Auto) Baso % (Auto) Absolute Neuts (auto) Absolute Lymphs (auto) PT INR Puncture Site Right radial pH 7.210 L* pCO2 67.0 H pO2 193.0 H HCO3 26.8 H Total CO2 28.9 H Base Excess -2.6 L Vent Mode Ac 12 FiO2 % 100% Tidal Volume 500 PEEP 5 Specimen Drawn By Roude Sodium Potassium Chloride Carbon Dioxide Anion Gap BUN Creatinine Estimated GFR (MDRD) Glucose POC Capillary Glucose 161 H Calculated Osmolality Lactic Acid Calcium Lab/DI/Studies Reviewed: EKG: Atrial flutter at rate of 70s/min Cxray: 1 view: Chest x-ray was seen personally patient has diffuse bilateral airspace disease but no change was noted this is consistent with significant congestive heart failure or massive infection Medications: Clopidogrel Bisulfate (Plavix) 75 mg PO DAILY [facility] Stop: 12/17/16 08:59 Last Admin: 12/03/16 08:54 Dose: Not Given Lisinopril (Zestril) 40 mg PO DAILY [facility] Stop: 12/17/16 08:59 Last Admin: 12/03/16 09:05 Dose: Not Given Metoprolol Tartrate (Lopressor) 12.5 mg PO BID [facility] Stop: 12/16/16 16:59 Morphine Sulfate (Morphine Sulfate) 2 mg IV Q3H PRN PRN Reason: Chest Pain or Discomfort Stop: 12/09/16 16:59 Last Admin: 12/03/16 09:14 Dose: 2 mg Nitroglycerin (Ntg (Nitrostat Sublingual Tab)) 0.4 mg SL PRN PRN; Protocol PRN Reason: Chest Pain or Discomfort Stop: 12/16/16 16:59 Nitroglycerin (Ntg Paste (Nitropaste)) 0.5 inch TOP Q6 [facility] Stop: 12/17/16 00:00 Last Admin: 12/03/16 05:19 Dose: 0.5 inch Acetaminophen (Tylenol Suppository) 650 mg DE Q6H PRN; Protocol PRN Reason: Mild Pain or Fever above 100.4 Stop: 12/16/16 16:59 Last Admin: 12/03/16 02:32 Dose: 650 mg Acetaminophen (Tylenol Tablet) 650 mg PO Q6H PRN; Protocol PRN Reason: Mild Pain or Fever above 100.4 Stop: 12/16/16 16:59 Albuterol (Proventil, Ventolin) 3 ml NEB Q2H PRN PRN Reason: Wheezing Stop: 12/16/16 16:59 Albuterol (Proventil, Ventolin) 3 ml NEB RTQ6 [facility] Stop: 12/16/16 16:59 Last Admin: 12/03/16 08:45 Dose: 3 ml Atorvastatin Calcium (Lipitor) 10 mg PO DAILY [facility] Stop: 12/16/16 16:59 Last Admin: 12/03/16 08:53 Dose: Not Given Famotidine (Pepcid 20 Mg) 20 mg in 50 mls @ 100 mls/hr IV Q12H [facility] Stop: 12/05/16 20:59 Last Admin: 12/03/16 09:14 Dose: 100 mls/hr Insulin Detemir (Levemir) 10 units SQ 0730 [facility] Stop: 12/17/16 07:29 Last Admin: 12/03/16 07:27 Dose: Not Given Insulin Human Regular (Humulin R) 0 units SQ ACHS [facility] PRN Reason: Protocol Stop: 12/16/16 16:59 Last Admin: 12/03/16 05:26 Dose: 3 units Lact Acid/Bifidobact/Lact [place]/Streptoc Th (Yun Q) 1 tab PO BIDLS [facility] Stop: 12/17/16 16:59 Risperidone (Risperdal) 2 mg PO HS [facility] Stop: 12/16/16 20:59 Last Admin: 12/02/16 21:20 Dose: 2 mg Rosuvastatin Calcium (Crestor) 20 mg PO QAM [facility] Stop: 12/17/16 08:59 Last Admin: 12/03/16 08:53 Dose: Not Given Sitagliptin Phosphate (Januvia) 50 mg PO DAILY [facility] Stop: 12/17/16 08:59 Last Admin: 12/03/16 08:53 Dose: Not Given Sertraline HCl (Zoloft) 100 mg PO QHS [facility] Stop: 12/16/16 20:59 Last Admin: 12/02/16 21:22 Dose: 100 mg Fentanyl Citrate (Fentanyl 10 Mcg/Ml) 2,500 mcg in 250 mls @ 5 mls/hr IV Q12H [facility]; 50 MCG/HR PRN Reason: Protocol Stop: 12/11/16 08:59 Last Admin: 12/04/16 09:33 Dose: 5 mls/hr Labetalol HCl (Trandate, Normodyne) 10 mg IV Q3H PRN PRN Reason: SBP Above 160 Stop: 12/16/16 16:59 Last Admin: 12/04/16 08:19 Dose: 10 mg Potassium Chloride (Klor-Con M20) 20 meq PO BIDWM [facility] Stop: 12/16/16 16:59 Last Admin: 12/04/16 07:32 Dose: Not Given Piperacillin Sod/Tazobactam (Sod 4.5 gm/ Dextrose) 100 mls @ 200 mls/hr IV Q6H [facility] Stop: 12/10/16 16:59 Last Admin: 12/04/16 10:11 Dose: 200 mls/hr Furosemide (Lasix) 80 mg IV Q6H [facility] Stop: 12/18/16 16:59 Last Admin: 12/04/16 12:08 Dose: 80 mg Enoxaparin Sodium (Lovenox) 100 mg SQ Q12H [facility] Stop: 12/17/16 00:59 Last Admin: 12/04/16 12:17 Dose: 100 mg Morphine Sulfate (Morphine Sulfate) 2 mg IV Q3H PRN PRN Reason: Chest Pain or Discomfort Stop: 12/09/16 16:59 Last Admin: 12/04/16 08:09 Dose: 2 mg Metoprolol Tartrate (Lopressor) 5 mg IV Q6 [facility] Stop: 12/17/16 16:59 Last Admin: 12/04/16 13:31 Dose: Not Given Levofloxacin/Dextrose (Levaquin 750 Mg) 750 mg in 150 mls @ 100 mls/hr IV Q24H [facility] Stop: 12/10/16 11:59 Last Admin: 12/04/16 12:15 Dose: 100 mls/hr - Assessment/Plan (1) Acute respiratory failure with hypoxia Acute J96.01 - ACUTE RESPIRATORY FAILURE WITH HYPOXIA Comment/Plan: Overnight events were noted patient was intubated because of worsening respiratory distress I would continue the current supportive care on this patient continue aggressive diuresis patient is critically ill and is in danger of dying his ejection fraction according to the assistant health educator was 12% and therefore he wishes the patient to be transferred to another facility. Patient has diffuse bilateral infiltrates I would agree to continue on aggressive diuresis to improve his pulmonary edema . I would check his x-ray and blood gas in the morning continue antibiotics including Zosyn and Levaquin, continue digoxin and other supportive care as per Cardiology. continue nebulizers supportive care at this time along with diuresis. (2) Congestive heart failure Acute I50.9 - HEART FAILURE, UNSPECIFIED systolic acute I50.21 - Acute systolic (congestive) heart failure Comment/Plan: Continue aggressive diuresis (3) Severe sepsis Acute A41.9 - SEPSIS, UNSPECIFIED ORGANISM; R65.20 - SEVERE SEPSIS WITHOUT SEPTIC SHOCK Comment/Plan: Continue antibiotics including Levaquin and Zosyn continue other supportive care (4) Bacterial pneumonia Suspected J15.9 - UNSPECIFIED BACTERIAL PNEUMONIA Comment/Plan: No change in current treatment at this time white count is improving would repeat chest x-ray and blood gas in the morning (5) Acute kidney injury Acute N17.9 - ACUTE KIDNEY FAILURE, UNSPECIFIED Comment/Plan: Stable at this time Total Face to Face Time: 35 minutes
--- NOTE | 2016-12-04 16:21 | CAPUEKG ---
[place], [place] Test Date: 2016-12-03 Pat Name: ISELA HOLLOWAY Department: Room: ICU Gender: Male Manager Urology: STACI : Requested By: Order Number: Reading MD: Rashid Ladd Measurements Intervals [place] Rate: 130 P: 100 TX: 116 QRS: -17 QRSD: 90 T: 132 QT: 280 QTc: 412 Interpretive Statements atrial flutter with 2:1 conduction. Poor anterior R wave progression (Possible Anterior infarct, age undetermined) ST \T\ T wave abnormality, consider lateral ischemia Abnormal ECG Electronically Signed On 12-04-16 16:21:13 EST by Rashid Ladd <[id number] [id number]
[2016-12-04] MEDS ORDERED: CHLORHEXIDINE 0.12% ORAL SOLN 15 ML PO SCH (18:00)
[2016-12-04] MEDS ORDERED: SODIUM CHLORIDE 0.9% 5 ML FLUSH FLUSH SCH (18:00)
== END 2016-12-04 14:17 | disposition hospice, home (50) | DRG 871 ==
LOC: ED 15:10 → ICU 17:22
PROVIDERS: ADMIT Hospitalist; ATTEND Internal Medicine
PROC: 039C3ZZ Drainage of Left Radial Artery, Percutaneous Approach (ICD-10-PCS; 2016-12-02)
PROC: 0BH17EZ Insertion of Endotracheal Airway into Trachea, Via Natural or Artificial Opening (ICD-10-PCS; principal; 2016-12-04)
PROC: 5A1935Z Respiratory Ventilation, Less than 24 Consecutive Hours (ICD-10-PCS; 2016-12-04)
PROC: 05HM33Z Insertion of Infusion Device into Right Internal Jugular Vein, Percutaneous Approach (ICD-10-PCS; 2016-12-04)
PROC: B543ZZA Ultrasonography of Right Jugular Veins, Guidance (ICD-10-PCS; 2016-12-04)
DX: A41.9 Sepsis, unspecified organism (principal); J96.01 Acute respiratory failure with hypoxia; R65.21 Severe sepsis with septic shock; N17.9 Acute kidney failure, unspecified; I50.43 Acute on chronic combined systolic (congestive) and diastolic (congestive) heart failure; J18.9 Pneumonia, unspecified organism; I48.3 Typical atrial flutter; E11.22 Type 2 diabetes mellitus with diabetic chronic kidney disease; N18.3 Chronic kidney disease, stage 3 (moderate); I24.8 Other forms of acute ischemic heart disease; I25.810 Atherosclerosis of coronary artery bypass graft(s) without angina pectoris; E87.2 Acidosis; I42.9 Cardiomyopathy, unspecified; E11.65 Type 2 diabetes mellitus with hyperglycemia; I12.9 Hypertensive chronic kidney disease with stage 1 through stage 4 chronic kidney disease, or unspecified chronic kidney disease; Z79.4 Long term (current) use of insulin; Z95.1 Presence of aortocoronary bypass graft; Z79.899 Other long term (current) drug therapy
CPT/HCPCS: 36415; 36600; 71010; 80048; 80053; 80061; 81001; 82803; 82962; 83036; 83605; 83690; 83735; 83880; 84443; 84484; 85007; 85025; 85027; 85610; 85730; 87040; 87086; 87641; 93005; 93306; 94003; 94640; 94660; 94762; 94770; 96365; 96366; 96372; 96375; 99285; E0710; G0237; J0456; J0696; J1160; J1650; J1940; J1956; J2270; J2543; J3010; J3490; J7060; J7070; S0028